=== PATIENT | female | born 1965 | race Caucasian/White ===

== ENCOUNTER 2016-08-05 20:02 | Observation (INO) | payer BC ==
[~2016-08-05] VITALS: Ht 154.9 cm; Wt 68.0 kg
[2016-08-05 20:55] VITALS: BP 127/62; PULSE 77; RESP 20; TEMP 97.9; O2SAT 98
[2016-08-05] MEDS ORDERED: oxyCODONE/ACETAMINOPHEN 10 MG/325 MG TAB PO ONE (21:45)
[2016-08-05] MEDS ORDERED: oxyCODONE/ACETAMINOPHEN 5 MG/325 MG TAB PO ONE (22:45)
--- NOTE | 2016-08-05 22:51 | RADRPT ---
EXAM DATE/TIME: 08/05/2016 22:22 [facility] COMPARISON: No previous studies available for comparison. INDICATIONS : Patient fell this morning and wasn't able to get up the stairs to her house. MEDICAL HISTORY : None. SURGICAL HISTORY : None. ENCOUNTER: Initial ACUITY: 1 day PAIN SCORE: 10/10 LOCATION: Right Knee FINDINGS: There is a comminuted and mildly depressed fracture of the lateral tibial plateau. A more focal fract ure is seen along the medial margin of the medial tibial plateau as well, appears minimally displaced /depressed. Moderate to large effusion. Distal femur intact. CONCLUSION: Medial and lateral tibial plateau fractures. The lateral tibial plateau fracture is mildly depressed and displaced but radiographically I don't see any abrupt step-offs. Humphrey Davidson MD on August 05, 2016 at 22:47 Board Certified Radiologist. This report was verified electronically.
--- NOTE | 2016-08-05 23:29 | PD ---
HPI Chief Complaint: Injury Time Seen by Provider: 20:52 Travel History International Travel<30 days: No Contact w/Intl Traveler<30days: No Traveled to known affect area: No History of Present Illness HPI Patient is a 51-year-old female presents emergency Department with right knee pain. Patient states she went to walk her dog earlier this morning and her dog caused her to trip and fall landing on a bent right knee. Patient states she was having pain since then. She presented to [facility] emergency department where she had x-rays which showed she had a knee fracture. She was placed in a knee immobilizer and told to follow-up with orthopedic surgery. Patient returned home where she lives on the third floor and stated that she could not find a way to get upstairs because she was in severe pain. She call 911 and was transported to [facility]. On arrival patient appears fairly comfortable but any manipulation of her knee causes significant pain. She denies any other injuries denies any head neck or back injuries. FORMERLY [facility] Social History Tobacco Use: No Allergies-Medications (Allergen,Severity, Reaction): Coded Allergies: No Known Allergies (Unverified , 08/05/16) Review of Systems Except as stated in HPI: all other systems reviewed are Neg Physical Exam Narrative GENERAL: Well-developed well-nourished in no apparent distress. SKIN: Warm and dry. HEAD: Atraumatic. Normocephalic. EYES: Pupils equal and round. No scleral icterus. No injection or drainage. ENT: No nasal bleeding or discharge. Mucous membranes pink and moist. NECK: Trachea midline. No JVD. CARDIOVASCULAR: Regular rate and rhythm. No murmur appreciated. RESPIRATORY: No accessory muscle use. Clear to auscultation. Breath sounds equal bilaterally. GASTROINTESTINAL: Abdomen soft, non-tender, nondistended. Hepatic and splenic margins not palpable. MUSCULOSKELETAL: RLE: Patient is significant swelling over the right knee and minimal joint effusion. She has exquisite tenderness on palpating the medial or lateral aspects of her knee. She does not allow for ligamentous testing. Her compartments are soft, pulses motor and sensory are intact distally. There is no tenderness at the medial lateral malleoli in the ankle nor tenderness in the right hip joint. Skin is intact over the knee joint. LLE: Left lower extremity is atraumatic. Axial skeleton is atraumatic, no midline step-off or tenderness. Pelvis is stable. NEUROLOGICAL: Awake and alert. No obvious cranial nerve deficits. Motor grossly within normal limits. Normal speech. PSYCHIATRIC: Appropriate mood and affect; insight and judgment normal. Data Data Last Documented VS Vital Signs Date Time Temp Pulse Resp B/P Pulse Ox O2 Delivery O2 Flow Rate FiO2 08/05/16 20:55 97.9 77 20 127/62 98 Orders Oxycodone-Acetamin 10-325 Mg (Percocet 1 (08/05/16 21:45) Knee, Complete (4vws) (08/05/16 ) Oxycodone-Acetamin 5-325 Mg (Percocet (08/05/16 22:45) Electrocardiogram (08/05/16 23:34) Complete Blood Count With Diff (08/05/16 23:34) Comprehensive Metabolic Panel (08/05/16 23:34) Magnesium (Mg) (08/05/16 23:34) Prothrombin Time / Inr (Pt) (08/05/16 23:34) Act Partial Throm Time (Ptt) (08/05/16 23:34) Chest, Single Ap (08/05/16 23:34) Ecg Monitoring (08/05/16 23:34) Bilateral Bp Monitoring (08/05/16 23:34) Iv Access Insert/Monitor (08/05/16 23:34) Oximetry (08/05/16 23:34) Oxygen Administration (08/05/16 23:34) Sodium Chloride 0.9% Flush (Ns Flush) (08/05/16 23:45) Admit To Inpatient (08/05/16 ) Vital Signs (Adult) Q4H (08/05/16 23:40) Activity Bed Rest (08/05/16 23:40) Diet Npo (08/06/16 Breakfast) Sodium Chlor 0.9% 1000 Ml Inj (Ns 1000 M (08/05/16 23:40) Sodium Chloride 0.9% Flush (Ns Flush) (08/05/16 23:45) Sodium Chloride 0.9% Flush (Ns Flush) (08/06/16 09:00) Ondansetron Inj (Zofran Inj) (08/05/16 23:45) Bisacodyl Supp (Dulcolax Supp) (08/05/16 23:45) Comprehensive Metabolic Panel (08/07/16 06:00) Complete Blood Count With Diff (08/07/16 06:00) Acetaminophen (Tylenol) (08/05/16 23:45) Acetamin-Hydrocod 325-5 Mg ([place] 5-325 (08/05/16 23:45) Morphine Inj (Morphine Inj) (08/05/16 23:45) Inpatient Certification (08/05/16 ) Admit Order (Ed Use Only) (08/05/16 ) Consult Orthopedic (08/05/16 ) [facility] Medical Decision Making Medical Screen Exam Complete: Yes Emergency Medical Condition: Yes Differential Diagnosis Knee fracture, knee contusion, knee sprain, knee strain. Narrative Course Patient was roomed in the emergency department, she appears fairly comfortable until any manipulation of her knee. X-rays obtained and show both the medial and lateral tibial plateau fracture on the right knee. Both are minimally displaced. Patient was placed in a knee immobilizer. Discussed with Dr. Bay Irby of the orthopedic service who agrees for consultation and inpatient admission. Dr. Robyn Amezquita's consult in for the episode is who will admit. Patient was instructed not to eat or drink anything after midnight for possible surgical intervention in the morning. Basic labs and EKG were ordered as part of preoperative clearance. Patient was given Percocet 5 mg by mouth 2 in the emergency department and on my reevaluation she is sleeping soundly in no apparent distress. Diagnosis Primary Impression: Tibial plateau fracture, right Qualified Code: S82.141A - Tibial plateau fracture, right, closed, initial encounter Admitting Information Admitting Physician Requests: Admit Condition: Stable Jamil Mcghee MD Aug 05, 2016 23:29
--- NOTE | 2016-08-05 23:41 | HHI.HP ---
[facility] Diagnosis Diagnoses: (1) Fall Diagnosis: Principal (2) Tibial plateau fracture, right Diagnosis: Principal (3) Hypokalemia Diagnosis: Principal Travel History International Travel<30 Days: No Contact w/Intl Traveler <30 Da: No Traveled to Known Affected Are: No History of Present Illness This a 51-year-old female with no significant PMH who was brought to the ER by EMS secondary to complaints of right knee pain. 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 Had presented to [facility] w/ complaints of right knee pain, had X-rays showing right knee fracture, was place in immobilizer and given instructions to follow up w/ Ortho as outpatient. When pt returned home she states she was unable to get up the stairs to her apartment due to the pain. On arrival, BP 127/62, HR 77, O2 sat 98% on RA, Afebrile. K+ 3.4. CXR w/ no acute findings. Knee X-ray w/ medial and lateral tibial plateau fractures. Dr. Irby consulted by ER physician, plan for surgical intervention. Review of Systems Other ROS: 14 point review of systems otherwise negative. Past Family Social History Past Medical History PMH: None Past Surgical History PAST SURGICAL HISTORY: None Allergies: Coded Allergies: No Known Allergies (Unverified , 08/05/16) Family History PAST FAMILY HISTORY: Reviewed. No h/o DM or CAD Social History PAST SOCIAL HISTORY: Negative for alcohol, tobacco or drugs. Physical Exam Vital Signs Vital Signs Date Time Temp Pulse Resp B/P Pulse Ox O2 Delivery O2 Flow Rate FiO2 08/05/16 20:55 97.9 77 20 127/62 98 Physical Exam PE: GENERAL: Middle-aged white female in no acute distress, however mildly anxious. HEENT: PERRLA, EOMI. No scleral icterus or conjunctival pallor. No lid lag or facial droop. CARDIOVASCULAR: Regular rate and rhythm. No obvious murmurs to auscultation. No chest tenderness to palpation. RESPIRATORY: No obvious rhonchi or wheezing. Clear to auscultation. Breath sounds equal bilaterally. GASTROINTESTINAL: Abdomen soft, non-tender, nondistended. BS normal. MUSCULOSKELETAL: Decreased ROM of RLE due to injury, significant tenderness to palpation. Pulses intact. NEUROLOGICAL: Awake, alert and oriented x4. No focal neurologic deficits. Moving both upper and lower extremities spontaneously. Assessment and Plan Problem List: (1) Fall ICD Code: W19.XXXA Status: Acute (2) Tibial plateau fracture, right ICD Code: S82.141A Status: Acute (3) Hypokalemia ICD Code: E87.6 Status: Acute Assessment and Plan A/P: 1. Fall: s/p mechanical fall down steps at home, no LOC or head trauma. 2. Right Knee Fx: Presented to [facility] after fall w/ complaints of right knee pain, found to have Right Knee Fx, s/p immobilizer and referred to Ortho as outpatient, however pt w/ persistent pain, unable to ambulate. X-ray w/ medial and lateral tibial plateau fx, images reviewed by me. Dr. Irby consulted by ER physician, plan for surgical intervention, NPO, IVF, analgesics/ antiemetics. 3. Hypokalemia: K+ 3.2, will replace, recheck labs in am, replace as needed. 4. DVT Prophylaxis: Anticoagulation post op per Ortho 5. Social work for d/c planning as needed. 6. Case discussed w/ ER physician at length. Physician Certification 2 Midnight Certification Type: Admission for Inpatient Services Order for Inpatient Services The services are ordered in accordance with Medicare regulations or non- Medicare payer requirements, as applicable. In the case of services not specified as inpatient-only, they are appropriately provided as inpatient services in accordance with the 2-midnight benchmark. Estimated LOS (days): 2 days is the estimated time the patient will need to remain in the hospital, assuming treatment plan goals are met and no additional complications. Post-Hospital Plan: Not yet determined Problem Qualifiers (1) Tibial plateau fracture, right: Qualified Code: S82.141A - Tibial plateau fracture, right, closed, initial encounter Robyn العراقي MD Aug 05, 2016 23:41
[2016-08-05] MEDS ORDERED: SODIUM CHLORIDE 0.9% FLUSH 5 ML FLUSH IVF PRN (23:45)
[2016-08-05] MEDS ORDERED: ACETAMINOPHEN 325 MG TAB PO PRN (23:45)
[2016-08-05] MEDS ORDERED: BISACODYL 10 MG SUPP PR PRN (23:45)
[2016-08-05] MEDS ORDERED: SODIUM CHLORIDE 0.9% FLUSH 5 ML FLUSH FLUSH PRN (23:45)
[2016-08-05] MEDS ORDERED: ACETAMINOPHEN/HYDROcodone 325 MG/5 MG TAB PO PRN (23:45)
[2016-08-06] VITALS (13 sets, daily range): BP systolic 97–137; BP diastolic 51–82; PULSE 53–84; RESP 16–22; TEMP 97.3–98.6; O2SAT 95–99
--- NOTE | 2016-08-06 00:09 | RADRPT ---
EXAM DATE/TIME: 08/05/2016 23:50 [facility] COMPARISON: No previous studies available for comparison. INDICATIONS : Evaluate for chest pain, pre op. Patient has right tibial plateau fx. MEDICAL HISTORY : None. SURGICAL HISTORY : None. ENCOUNTER: Initial ACUITY: 1 day PAIN SCORE: 7/10 LOCATION: Bilateral chest FINDINGS: Portable AP view of the chest demonstrates a normal-sized cardiac silhouette. No effusion, consolidat ion, or pneumothorax is visualized. The bones and soft tissues demonstrate no acute abnormality. CONCLUSION: No acute cardiopulmonary abnormality is identified. Humphrey Armendariz MD on August 06, 2016 at 0:06 Board Certified Radiologist. This report was verified electronically.
[2016-08-06 01:24] LABS: BASOPHIL % 0.6 % (0.0-2.0); EOSINOPHIL # 0.1 TH/MM3 (0-0.4); EOSINOPHIL % 2.7 % (0.0-4.0); HEMATOCRIT 35.4 % (35.0-46.0); HEMO FLAGS DIFF FINAL; LYMPH % 29.6 % (9.0-44.0); LYMPHOCYTE # 1.5 TH/MM3 (1.0-4.8); MEAN CELL VOLUME 87.9 FL (80.0-100.0); MEAN CORPUSCULAR HEMOGLOBIN 29.6 PG (27.0-34.0); MEAN CORPUSCULAR HGB CONC 33.7 % (32.0-36.0); MONO % 8.3 % (0.0-8.0); NEUT % 58.8 % (16.0-70.0); PLATELET COUNT 188 TH/MM3 (150-450); RED BLOOD COUNT 4.03 MIL/MM3 (4.00-5.30); WHITE BLOOD COUNT 5.2 TH/MM3 (4.0-11.0)
[2016-08-06 01:37] LABS: ALT (GPT) 29 U/L (10-53); ANION GAP 7 MEQ/L (5-15); AST (GOT) 11 U/L (15-37); BICARBONATE 26.5 MEQ/L (21.0-32.0); BLOOD UREA NITROGEN 16 MG/DL (7-18); CHLORIDE 108 MEQ/L (98-107); GLOMERULAR FILTRATION RATE 64 ML/MIN (>89); POTASSIUM 3.4 MEQ/L (3.5-5.1); SODIUM (NA) 141 MEQ/L (136-145)
[2016-08-06 01:39] LABS: ALKALINE PHOSPHATASE 70 U/L (45-117); TOTAL BILIRUBIN ADULT 0.4 MG/DL (0.2-1.0)
[2016-08-06] MEDS ORDERED: POTASSIUM CHLORIDE 20 MEQ CONTROLLED RELEASE TAB PO ONE (02:30)
[2016-08-06] MEDS: SODIUM CHLOR 0.9% 1000 ML INJ 1,000 ML IV SCH ×3 (03:01→19:40)
[2016-08-06] MEDS: MORPHINE SULFATE 4 MG/ML INJ IV PRN ×2 (04:25→07:24)
[2016-08-06] MEDS: SODIUM CHLORIDE 0.9% FLUSH 5 ML FLUSH FLUSH SCH ×2 (07:25→20:54)
--- NOTE | 2016-08-06 07:33 | HHI.PR ---
Subjective Remarks in no acute distress. complaining of pain to the right knee. otherwise no other complaints. d/w the RN. Objective Vitals Vital Signs Date Time Temp Pulse Resp B/P Pulse Ox O2 Delivery O2 Flow Rate FiO2 08/06/16 03:54 53 08/06/16 03:30 97.3 69 20 131/76 96 08/06/16 00:01 97.7 67 22 120/66 96 08/06/16 00:00 97.7 69 22 117/67 96 08/06/16 00:00 97.7 69 22 117/67 96 08/05/16 20:55 97.9 77 20 127/62 98 I/O 08/05/16 08/05/16 08/05/16 08/06/16 08/06/16 08/06/16 07:00 15:00 23:00 07:00 15:00 23:00 Intake Total 350 ml Balance 350 ml Intake IV Total 350 ml # Voids 2 Result Diagram: 08/06/16 0055 08/06/16 0055 Imaging Last Impressions Chest X-Ray 08/05/16 2334 Signed Impressions: Service Date/Time: August 23:50 - CONCLUSION: No acute cardiopulmonary abnormality is identified. Humphrey Armendariz MD Knee X-Ray 08/05/16 0000 Signed Impressions: Service Date/Time: August 22:22 - CONCLUSION: Medial and lateral tibial plateau fractures. The lateral tibial plateau fracture is mildly depressed and displaced but radiographically I don't see any abrupt step-offs. Humphrey Davidson MD Objective Remarks GENERAL: This is a well-nourished, well-developed patient, in no apparent distress. CARDIOVASCULAR: Regular rate and regular rhythm without murmurs, gallops, or rubs. RESPIRATORY: Clear to auscultation. Breath sounds equal bilaterally. No wheezes , rales, or rhonchi. GASTROINTESTINAL: Abdomen soft, non-tender, nondistended. Normal, active bowel sounds MUSCULOSKELETAL: right knee covered with clean dressing. NEURO: Alert & Oriented x4 to person, place, time, situation. Moves all ext x4 Procedures none Medications and IVs Current Medications Oxycodone/ Acetaminophen (Percocet 10-325 Mg) 1 tab ONCE ONCE PO ; Start at 21:45; Stop 08/05/16 at 22:36; Status DC Oxycodone/ Acetaminophen (Percocet 5-325 Mg) 2 tab ONCE ONCE PO Last administered on 08/05/16 23:10; Start 08/05/16 at 22:45; Stop 08/05/16 at 22:47; Status DC IV Flush 2 ml 2 ml UNSCH PRN IVF FLUSH AFTER USING IV ACCESS; Start 08/05/16 at 23:45; Stop 08/05/16 at 23:45; Status DC Sodium Chloride (NS 1000 ml Inj) 1,000 ml @ 100 mls/hr Q10H IV Last administered on 08/06/16 03:01; Start 08/05/16 at 23:40 IV Flush (NS Flush) 2 ml UNSCH PRN FLUSH FLUSH AFTER USING IV ACCESS; Start 08/05/16 at 23:45 IV Flush (NS Flush) 2 ml BID FLUSH Last administered on 08/06/16 07:25; Start 08/06/16 at 09:00 Ondansetron HCl (Zofran Inj) 4 mg Q6H PRN IVP NAUSEA OR VOMITING; Start at 23:45 Bisacodyl (Dulcolax Supp) 10 mg DAILY PRN [place] CONSTIPATION; Start 08/05/16 at 23: 45 Acetaminophen (Tylenol) 650 mg Q6H PRN PO FEVER/PAIN SCALE 1 TO 2; Start at 23:45 Acetaminophen/ Hydrocodone Bitart ([place] 5-325 Mg) 1 tab Q4H PRN PO PAIN SCALE 3 TO 5; Start 08/05/16 at 23:45 Morphine Sulfate (Morphine Inj) 2 mg Q3H PRN IV Pain 6-10 Last administered on 08/06/16 07:24; Start 08/05/16 at 23:45 Potassium Chloride (KCl) 40 meq ONCE ONCE PO Last administered on 08/06/16 03: 00; Start 08/06/16 at 02:30; Stop 08/06/16 at 02:37; Status DC A/P Assessment and Plan A/P 1. Fall: s/p mechanical fall down steps at home, no LOC or head trauma. 2. Right Knee Fx: Presented to [facility] after fall w/ complaints of right knee pain, found to have Right Knee Fx, s/p immobilizer and referred to Ortho as outpatient, however pt w/ persistent pain, unable to ambulate. X-ray w/ medial and lateral tibial plateau fx- ortho consulted- NPO, IVF, analgesics/ antiemetics. 3. Hypokalemia: K+ 3.2, replace, recheck labs in am, replace as needed. 4. DVT Prophylaxis: per ortho. Bethanie Bishop MD Aug 06, 2016 07:33
--- NOTE | 2016-08-06 07:33 | RADRPT ---
EXAM DATE/TIME: 08/06/2016 06:58 [facility] COMPARISON: No previous studies available for comparison. INDICATIONS : Trauma, fall. Evaluate fracture. RADIATION DOSE: 7.29 CTDIvol (mGy) MEDICAL HISTORY : None SURGICAL HISTORY : None. ENCOUNTER: Initial ACUITY: 1 day PAIN SCALE: 10/10 LOCATION: Right proximal tibia TECHNIQUE: Volumetric scanning of the knee was performed. Using automated exposure control and adjustment of th e mA and/or kV according to patient size, radiation dose was kept as low as reasonably achievable to obtain optimal diagnostic quality images. FINDINGS: There is plateau fracture involving medial and lateral plateau with significant deformity of the [place] cular cartilage over two thirds of the tibial plateau. Subarticular cyst is noted centrally. The distal femur and patella are intact. The fibular head is intact. CONCLUSION: Depressed punch type tibial plateau fracture involving the significant amount of the articular cartilage. Subarticular cyst is noted centrally. Jamel Jarrett MD FACR on August 06, 2016 at 7:30 Board Certified Radiologist. This report was verified electronically.
[2016-08-06] MEDS ORDERED: TOPI1TAB36 PO (07:35)
[2016-08-06] MEDS ORDERED: VENL50TA PO (07:35)
[2016-08-06] MEDS ORDERED: OXYC1TAB63 PO (07:35)
[2016-08-06] MEDS ORDERED: CART240C PO (07:35)
[2016-08-06] MEDS ORDERED: LOSA100T PO (07:35)
[2016-08-06] MEDS ORDERED: CITA20TA4 PO (07:35)
[2016-08-06] MEDS ORDERED: PHEN1TAB84 PO (07:35)
--- NOTE | 2016-08-06 13:37 | EKG ---
Date Performed: 08/06/2016 Time Performed: 07:48:33 PTAGE: 51 years EKG: SINUS BRADYCARDIA BORDERLINE ECG PREVIOUS TRACING : 08/06/2016 07.47 DOCTOR: Monica De Leon Interpretating Date/Time 08/06/2016 13:33:48
--- NOTE | 2016-08-06 13:42 | PD.ORT.PN ---
Subjective Subjective Remarks s/p fall at home. right knee paint. no other complaints Objective Vitals Vital Signs Date Time Temp Pulse Resp B/P Pulse Ox O2 Delivery O2 Flow Rate FiO2 08/06/16 10:00 68 20 114/58 98 Room Air 08/06/16 09:00 63 20 126/82 98 Room Air 08/06/16 08:01 18 08/06/16 07:36 113/75 97/53 08/06/16 07:28 63 17 110/51 97 Room Air 08/06/16 03:54 53 08/06/16 03:30 97.3 69 20 131/76 96 08/06/16 00:01 97.7 67 22 120/66 96 08/06/16 00:00 97.7 69 22 117/67 96 08/06/16 00:00 97.7 69 22 117/67 96 08/05/16 20:55 97.9 77 20 127/62 98 I/O 08/05/16 08/05/16 08/05/16 08/06/16 08/06/16 08/06/16 07:00 15:00 23:00 07:00 15:00 23:00 Intake Total 350 ml Balance 350 ml Intake IV Total 350 ml # Voids 2 Result Diagram: 08/06/16 0055 08/06/16 0055 Other Results Laboratory Tests Test 08/06/16 00:55 Prothrombin Time 11.0 SEC (9.8-11.6) Prothromb Time International 1.0 RATIO Ratio Imaging Last 24 hours Impressions Lower Extremity CT 08/06/16 0000 Signed Impressions: Service Date/Time: Saturday, August 06, 2016 06:58 - CONCLUSION: Depressed punch type tibial plateau fracture involving the significant amount of the articular cartilage. Subarticular cyst is noted centrally. Jamel Jarrett MD FACR Chest X-Ray 08/05/16 9256 Signed Impressions: Service Date/Time: August 23:50 - CONCLUSION: No acute cardiopulmonary abnormality is identified. Humphrey Armendariz MD Objective Remarks RLE: + knee brace. + ice cuff. NVI distally. compartments sfot. Assessment & Plan Assessment and Plan 1) Right Tibial Plateau Fx -nonop -NWB -maintain brace -recmomend Dc to rehab -f/u with [facility] or [facility] in 2 weeks -ortho cleared for DC to rehab Luis Kelley Aug 06, 2016 13:42
[2016-08-06] MEDS: MORPHINE SULFATE 4 MG/ML INJ IV PUSH PRN ×3 (14:18→21:39)
[2016-08-06] MEDS: ENOXAPARIN SODIUM 30 MG/0.3 ML SYRINGE SQ SCH (14:18)
[2016-08-06] MEDS: ONDANSETRON HCL 4 MG/2 ML VIAL IVP PRN (14:19)
[2016-08-06] MEDS: ACETAMINOPHEN/HYDROcodone 325 MG/7.5 MG TAB PO PRN (18:13)
[2016-08-07] MEDS: MORPHINE SULFATE 4 MG/ML INJ IV PUSH PRN ×6 (00:41→21:13)
[2016-08-07] MEDS: ACETAMINOPHEN/HYDROcodone 325 MG/7.5 MG TAB PO PRN ×2 (01:07→04:51)
[2016-08-07 03:51] VITALS: BP 168/87; PULSE 80; RESP 16; TEMP 98.1; O2SAT 93
[2016-08-07] MEDS: ONDANSETRON HCL 4 MG/2 ML VIAL IVP PRN (04:06)
[2016-08-07 04:52] LABS: AUTOMATED NEUTROPHIL # 2.4 TH/MM3 (1.8-7.7); BASOPHIL # 0.1 TH/MM3 (0-0.2); BASOPHIL % 2.3 % (0.0-2.0); EOSINOPHIL # 0.1 TH/MM3 (0-0.4); EOSINOPHIL % 3.6 % (0.0-4.0); HEMATOCRIT 36.4 % (35.0-46.0); LYMPH % 21.1 % (9.0-44.0); LYMPHOCYTE # 0.8 TH/MM3 (1.0-4.8); MEAN CELL VOLUME 90.5 FL (80.0-100.0); MEAN CORPUSCULAR HEMOGLOBIN 29.4 PG (27.0-34.0); MEAN CORPUSCULAR HGB CONC 32.5 % (32.0-36.0); MONO % 9.1 % (0.0-8.0); NEUT % 63.9 % (16.0-70.0); PLATELET COUNT 176 TH/MM3 (150-450); RED BLOOD COUNT 4.02 MIL/MM3 (4.00-5.30); RED CELL DISTRIBUTION WIDTH 17.7 % (11.6-17.2); WHITE BLOOD COUNT 3.8 TH/MM3 (4.0-11.0)
[2016-08-07 04:58] LABS: HEMO FLAGS AUTO DIFF
[2016-08-07 05:16] LABS: ALKALINE PHOSPHATASE 62 U/L (45-117); ALT (GPT) 24 U/L (10-53); ANION GAP 6 MEQ/L (5-15); AST (GOT) 11 U/L (15-37); BICARBONATE 24.4 MEQ/L (21.0-32.0); BLOOD UREA NITROGEN 13 MG/DL (7-18); CHLORIDE 112 MEQ/L (98-107); GLOMERULAR FILTRATION RATE 86 ML/MIN (>89); POTASSIUM 4.6 MEQ/L (3.5-5.1); SODIUM (NA) 142 MEQ/L (136-145); TOTAL BILIRUBIN ADULT 0.3 MG/DL (0.2-1.0)
[2016-08-07] MEDS: SODIUM CHLOR 0.9% 1000 ML INJ 1,000 ML IV SCH ×2 (05:40→14:22)
--- NOTE | 2016-08-07 07:39 | HHI.PR ---
Subjective Remarks in no acute distress. has some pain to the right leg. otherwise no other complaints. d/w the RN and no acute issues over night. Objective Vitals Vital Signs Date Time Temp Pulse Resp B/P Pulse Ox O2 Delivery O2 Flow Rate FiO2 08/07/16 03:51 98.1 80 16 168/87 93 08/07/16 00:46 20 08/06/16 23:58 97.5 71 20 137/79 95 08/06/16 19:59 98.6 71 20 136/57 95 08/06/16 18:15 97.8 84 18 114/72 99 Room Air 08/06/16 14:00 70 18 114/57 99 Room Air 08/06/16 12:00 70 16 110/58 98 Room Air 08/06/16 10:00 68 20 114/58 98 Room Air 08/06/16 09:00 63 20 126/82 98 Room Air 08/06/16 08:01 18 Result Diagram: 08/07/16 0433 08/07/16 0433 Imaging Last Impressions Lower Extremity CT 08/06/16 0000 Signed Impressions: Service Date/Time: Saturday, August 06, 2016 06:58 - CONCLUSION: Depressed punch type tibial plateau fracture involving the significant amount of the articular cartilage. Subarticular cyst is noted centrally. Jamel Jarrett MD FACR Chest X-Ray 08/05/16 2334 Signed Impressions: Service Date/Time: August 23:50 - CONCLUSION: No acute cardiopulmonary abnormality is identified. Humphrey Armendariz MD Knee X-Ray 08/05/16 0000 Signed Impressions: Service Date/Time: August 22:22 - CONCLUSION: Medial and lateral tibial plateau fractures. The lateral tibial plateau fracture is mildly depressed and displaced but radiographically I don't see any abrupt step-offs. Humphrey Davidson MD Objective Remarks GENERAL: This is a well-nourished, well-developed patient, in no apparent distress. CARDIOVASCULAR: Regular rate and regular rhythm without murmurs, gallops, or rubs. RESPIRATORY: Clear to auscultation. Breath sounds equal bilaterally. No wheezes , rales, or rhonchi. GASTROINTESTINAL: Abdomen soft, non-tender, nondistended. Normal, active bowel sounds MUSCULOSKELETAL: right knee covered with clean dressing. NEURO: Alert & Oriented x4 to person, place, time, situation. Moves all ext x4 Procedures none Medications and IVs Current Medications Oxycodone/ Acetaminophen (Percocet 10-325 Mg) 1 tab ONCE ONCE PO ; Start at 21:45; Stop 08/05/16 at 22:36; Status DC Oxycodone/ Acetaminophen (Percocet 5-325 Mg) 2 tab ONCE ONCE PO Last administered on 08/05/16 23:10; Start 08/05/16 at 22:45; Stop 08/06/16 at 13:47; Status DC IV Flush 2 ml 2 ml UNSCH PRN IVF FLUSH AFTER USING IV ACCESS; Start 08/05/16 at 23:45; Stop 08/05/16 at 23:45; Status DC Sodium Chloride (NS 1000 ml Inj) 1,000 ml @ 100 mls/hr Q10H IV Last administered on 08/07/16 05:40; Start 08/05/16 at 23:40 IV Flush (NS Flush) 2 ml UNSCH PRN FLUSH FLUSH AFTER USING IV ACCESS; Start 08/05/16 at 23:45 IV Flush (NS Flush) 2 ml BID FLUSH Last administered on 08/06/16 07:25; Start 08/06/16 at 09:00 Ondansetron HCl (Zofran Inj) 4 mg Q6H PRN IVP NAUSEA OR VOMITING Last administered on 08/07/16 04:06; Start 08/05/16 at 23:45 Bisacodyl (Dulcolax Supp) 10 mg DAILY PRN [place] CONSTIPATION; Start 08/05/16 at 23: 45 Acetaminophen (Tylenol) 650 mg Q6H PRN PO FEVER; Start 08/05/16 at 23:45 Acetaminophen/ Hydrocodone Bitart ([place] 5-325 Mg) 1 tab Q4H PRN PO PAIN SCALE 3 TO 5 Last administered on 08/06/16 10:51; Start 08/05/16 at 23:45; Stop 08/06/16 at 13:47; Status DC Morphine Sulfate (Morphine Inj) 2 mg Q3H PRN IV Pain 6-10 Last administered on 08/06/16 07:24; Start 08/05/16 at 23:45; Stop 08/06/16 at 13:47; Status DC Potassium Chloride (KCl) 40 meq ONCE ONCE PO Last administered on 08/06/16 03: 00; Start 08/06/16 at 02:30; Stop 08/06/16 at 02:37; Status DC Enoxaparin Sodium (Lovenox Inj) 30 mg Q24H SQ Last administered on 08/06/16 14: 18; Start 08/06/16 at 15:00 Acetaminophen/ Hydrocodone Bitart ([place] 7.5-325 Mg) 1 tab Q4H PRN PO pain 1- 5 Last administered on 08/07/16 04:51; Start 08/06/16 at 13:45 Acetaminophen/ Hydrocodone Bitart ([place] 10-325 Mg) 1 tab Q4H PRN PO pain 6-10 ; Start 08/06/16 at 13:45 Morphine Sulfate (Morphine Inj) 4 mg Q3H PRN IV PUSH breakthrough pain Last administered on 08/07/16 06:49; Start 08/06/16 at 13:45 A/P Assessment and Plan A/P 1. Fall: s/p mechanical fall down steps at home, no LOC or head trauma. 2. Right Knee Fx: ortho consult appreciated and recommended; non-op treatment / NWB and dc planning to rehab- continue pain control- f/u with ortho as outpatient. 3. Hypokalemia: replaced. 4. DVT Prophylaxis:on lovenox. Discharge Planning dc to rehab when arrangements made. see med list. f/u; pcp and ortho. d/w the patient and RN. Bethanie Bishop MD Aug 07, 2016 07:39
[2016-08-07] MEDS ORDERED: HYDR-3580 PO (07:41)
--- NOTE | 2016-08-07 07:42 | HHI.DCPOC ---
Discharge Care Plan Diagnosis: (1) Tibial plateau fracture, right Your Health Problems Are: Difficulty with ADL Chronic Pain Goals to Promote Your Health * To prevent worsening of your condition and complications * To maintain your health at the optimal level Directions to Meet Your Goals Take your medications as prescribed Follow your dietary instruction Follow activity as directed Keep your appointments as scheduled Take your immunizations and boosters as scheduled If your symptoms worsen call your PCP, if no PCP go to Urgent Care Center or Emergency Room Smoking is Dangerous to Your Health. Avoid second hand smoke Call the 24-hour hour crisis hotline for domestic abuse at Bethanie Bishop MD Aug 07, 2016 07:42
--- NOTE | 2016-08-07 07:43 | HHI.DS ---
Discharge Summary Admission Date Aug 05, 2016 at 23:43 Discharge Date: Aug 07, 2016 Admitting Diagnosis (1) Fall ICD Code: W19.XXXA Diagnosis: Principal (2) Tibial plateau fracture, right ICD Code: S82.141A Diagnosis: Principal (3) Hypokalemia ICD Code: E87.6 Diagnosis: Secondary Procedures none Brief History - From Admission This a 51-year-old female with no significant PMH who was brought to the ER by EMS secondary to complaints of right knee pain. Per patient, she had walked her dog earlier this morning and had fall while walking down her steps to go tack picker her dog. Had presented to [facility] w/ complaints of right knee pain, had X-rays showing right knee fracture, was place in immobilizer and given instructions to follow up w/ Ortho as outpatient. When pt returned home she states she was unable to get up the stairs to her apartment due to the pain. On arrival, BP 127/62, HR 77, O2 sat 98% on RA, Afebrile. K+ 3.4. CXR w/ no acute findings. Knee X-ray w/ medial and lateral tibial plateau fractures. Dr. Irby consulted by ER physician, plan for surgical intervention. CBC/BMP: 08/07/16 0433 08/07/16 0433 Significant Findings Laboratory Tests Test 08/06/16 08/07/16 00:55 04:33 Red Cell Distribution Width 18.0 % 17.7 % (11.6-17.2) (11.6-17.2) Monocytes (%) (Auto) 8.3 % (0.0-8.0) 9.1 % (0.0-8.0) Potassium Level 3.4 MEQ/L (3.5-5.1) Chloride Level 108 MEQ/L 112 MEQ/L (98-107) (98-107) Estimat Glomerular Filtration 64 ML/MIN (>89) 86 ML/MIN (>89) Rate Aspartate Amino Transf 11 U/L (15-37) 11 U/L (15-37) (AST/SGOT) Total Protein 6.2 GM/DL 6.2 GM/DL (6.4-8.2) (6.4-8.2) Albumin 3.3 GM/DL 3.0 GM/DL (3.4-5.0) (3.4-5.0) White Blood Count 3.8 TH/MM3 (4.0-11.0) Basophils (%) (Auto) 2.3 % (0.0-2.0) Lymphocytes # (Auto) 0.8 TH/MM3 (1.0-4.8) Imaging Last Impressions Lower Extremity CT 08/06/16 0000 Signed Impressions: Service Date/Time: Saturday, August 06, 2016 06:58 - CONCLUSION: Depressed punch type tibial plateau fracture involving the significant amount of the articular cartilage. Subarticular cyst is noted centrally. Jamel Jarrett MD FACR Chest X-Ray 08/05/16 2334 Signed Impressions: Service Date/Time: August 23:50 - CONCLUSION: No acute cardiopulmonary abnormality is identified. Humphrey Armendariz MD Knee X-Ray 08/05/16 0000 Signed Impressions: Service Date/Time: August 22:22 - CONCLUSION: Medial and lateral tibial plateau fractures. The lateral tibial plateau fracture is mildly depressed and displaced but radiographically I don't see any abrupt step-offs. Humphrey Davidson MD PE at Discharge GENERAL: This is a well-nourished, well-developed patient, in no apparent distress. CARDIOVASCULAR: Regular rate and regular rhythm without murmurs, gallops, or rubs. RESPIRATORY: Clear to auscultation. Breath sounds equal bilaterally. No wheezes , rales, or rhonchi. GASTROINTESTINAL: Abdomen soft, non-tender, nondistended. Normal, active bowel sounds MUSCULOSKELETAL: right knee covered with clean dressing. NEURO: Alert & Oriented x4 to person, place, time, situation. Moves all ext x4 Hospital Course 1. Fall: s/p mechanical fall down steps at home, no LOC or head trauma. 2. Right Knee Fx: ortho consult appreciated and recommended; non-op treatment / NWB and dc planning to rehab- continue pain control- f/u with ortho as outpatient. 3. Hypokalemia: replaced. 4. DVT Prophylaxis:on lovenox. Pt Condition on Discharge: Fair Discharge Disposition: Discharge to SNF Discharge Time: <= 30 minutes Discharge Instructions DIET: Follow Instructions for: Heart Healthy Diet Activities you can perform: Regular-No Restrictions, Non Weight Bearing Follow up Referrals: Orthopedics PCP Follow-up New Medications: Hydrocodone-Acetaminophen (Hydrocodone-Acetaminophen) 7.5-325 mg Tab 1 TAB PO Q6HR PRN pain #20 Ref 0 TAB Continued Medications: Citalopram (Citalopram) 20 Mg Tab 20 MG PO DAILY Control Depression #0 Ref 0 TAB Losartan (Losartan) 100 Mg Tab 100 MG PO DAILY Blood Pressure Management #0 Ref 0 TAB Phentermine (Adipex-P) 37.5 Mg Tab 37.5 MG PO DAILY Weight Management #9 Ref 0 TAB Topiramate (Topiramate) 50 Mg Tab 50 MG PO BID Control Seizures #0 Ref 0 TAB Venlafaxine (Effexor) 50 Mg Tab 50 MG PO Q12H #0 Ref 0 TAB Discontinued Medications: Diltiazem ER 24 HR (Cartia Xt) 240 Mg Caper 240 MG PO DAILY #0 Ref 0 CAP Oxycodone-Acetaminophen (Oxycodone-Acetaminophen) 5-325 mg Tab 1-2 TAB PO Q6H PRN PAIN Ref 0 TAB Bethanie Bishop MD Aug 07, 2016 07:43
[2016-08-07 08:00] VITALS: BP 139/81; PULSE 81; RESP 18; TEMP 97.4; O2SAT 94
--- NOTE | 2016-08-07 09:18 | PD.ORT.PN ---
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, recently she is an RN Objective Vitals Vital Signs Date Time Temp Pulse Resp B/P Pulse Ox O2 Delivery O2 Flow Rate FiO2 08/07/16 03:51 98.1 80 16 168/87 93 08/07/16 00:46 20 08/06/16 23:58 97.5 71 20 137/79 95 08/06/16 19:59 98.6 71 20 136/57 95 08/06/16 18:15 97.8 84 18 114/72 99 Room Air 08/06/16 14:00 70 18 114/57 99 Room Air 08/06/16 12:00 70 16 110/58 98 Room Air 08/06/16 10:00 68 20 114/58 98 Room Air Result Diagram: 08/07/16 0433 08/07/16 0433 Imaging Last 24 hours Impressions Lower Extremity CT 08/06/16 0000 Signed Impressions: Service Date/Time: Saturday, August 06, 2016 06:58 - CONCLUSION: Depressed punch type tibial plateau fracture involving the significant amount of the articular cartilage. Subarticular cyst is noted centrally. Jamel Jarrett MD FACR Chest X-Ray 08/05/16 2334 Signed Impressions: Service Date/Time: August 23:50 - CONCLUSION: No acute cardiopulmonary abnormality is identified. Humphrey Armendariz MD Objective Remarks seen by Dr. Ruben Ayala RLE: + knee brace. + ice cuff. NVI distally. compartments soft Assessment & Plan Assessment and Plan 1) Right Tibial Plateau Fx -nonop -NWB -maintain brace -recmomend DC to rehab -f/u with [facility] or [facility] in 2 weeks -ortho cleared for DC to rehab Erika Solo Aug 07, 2016 09:18
[2016-08-07 09:46] LABS: BANDS 5 % (0-6); BASOPHILS 2 % (0-2); EOSINOPHILS 2 % (0-4); NEUTROPHIL # MANUAL DIFF 2.3 TH/MM3 (1.8-7.7); POLYS (SEG NEUTROPHILS) 56 % (16-70); WBC DIFF SAMPLE 100
[2016-08-07 09:47] LABS: PLATELET ESTIMATE SMEAR NORMAL (NORMAL); PLATELET MORPHOLOGY NORMAL (NORMAL); SCAN/DIFF FINAL DIFF MANUAL
[2016-08-07] MEDS: VENLAFAXINE HCL 25 MG TAB PO SCH ×2 (09:47→21:14)
[2016-08-07] MEDS: CITALOPRAM HYDROBROMIDE 20 MG TAB PO SCH (09:47)
[2016-08-07] MEDS: ACETAMINOPHEN/HYDROcodone 325 MG/10 MG TAB PO PRN ×4 (09:47→23:31)
[2016-08-07] MEDS: LOSARTAN 50 MG TAB PO SCH (09:47)
[2016-08-07] MEDS: TOPIRAMATE 25 MG TAB PO SCH ×2 (09:47→21:13)
[2016-08-07] MEDS: SODIUM CHLORIDE 0.9% FLUSH 5 ML FLUSH FLUSH SCH ×2 (09:48→21:13)
[2016-08-07 12:34] VITALS: BP 129/69; PULSE 66; RESP 18; TEMP 97; O2SAT 93
[2016-08-07] MEDS: ENOXAPARIN SODIUM 30 MG/0.3 ML SYRINGE SQ SCH (14:21)
[2016-08-07 15:58] VITALS: BP 128/73; PULSE 62; RESP 18; TEMP 97.5; O2SAT 97
[2016-08-07 20:00] VITALS: BP 129/65; PULSE 80; RESP 20; TEMP 97.1; O2SAT 95
[2016-08-08] VITALS: BP 134/70; PULSE 80; RESP 20; TEMP 97.1; O2SAT 96
[2016-08-08] MEDS: SODIUM CHLOR 0.9% 1000 ML INJ 1,000 ML IV SCH ×3 (01:40→20:54)
[2016-08-08 04:00] VITALS: BP 125/75; PULSE 81; RESP 20; TEMP 98; O2SAT 97
[2016-08-08] MEDS: MORPHINE SULFATE 4 MG/ML INJ IV PUSH PRN ×4 (04:29→23:58)
[2016-08-08 07:51] VITALS: BP 162/74; PULSE 66; RESP 18; TEMP 97; O2SAT 97
--- NOTE | 2016-08-08 07:52 | HHI.PR ---
Subjective Remarks resting comfortably with no distress. pain to the right leg is fairly controlled. Objective Vitals Vital Signs Date Time Temp Pulse Resp B/P Pulse Ox O2 Delivery O2 Flow Rate FiO2 08/08/16 04:00 98.0 81 20 125/75 97 08/08/16 00:00 97.1 80 20 134/70 96 08/07/16 20:00 97.1 80 20 129/65 95 08/07/16 15:58 97.5 62 18 128/73 97 08/07/16 12:34 97.0 66 18 129/69 93 08/07/16 08:00 97.4 81 18 139/81 94 I/O 08/07/16 08/07/16 08/07/16 08/08/16 08/08/16 08/08/16 07:00 15:00 23:00 07:00 15:00 23:00 Intake Total 1200 ml 240 ml 393 ml Output Total 400 ml Balance 800 ml 240 ml 393 ml Intake Oral 1200 ml 240 ml 120 ml IV Total 273 ml Output Urine Total 400 ml # Voids 1 1 1 # Bowel Movements 0 Result Diagram: 08/07/16 0433 08/07/16 0433 Imaging Last Impressions Lower Extremity CT 08/06/16 0000 Signed Impressions: Service Date/Time: Saturday, August 06, 2016 06:58 - CONCLUSION: Depressed punch type tibial plateau fracture involving the significant amount of the articular cartilage. Subarticular cyst is noted centrally. Jamel Jarrett MD FACR Chest X-Ray 08/05/16 2334 Signed Impressions: Service Date/Time: August 23:50 - CONCLUSION: No acute cardiopulmonary abnormality is identified. Humphrey Armendariz MD Knee X-Ray 08/05/16 0000 Signed Impressions: Service Date/Time: August 22:22 - CONCLUSION: Medial and lateral tibial plateau fractures. The lateral tibial plateau fracture is mildly depressed and displaced but radiographically I don't see any abrupt step-offs. Humphrey Davidson MD Objective Remarks GENERAL: This is a well-nourished, well-developed patient, in no apparent distress. CARDIOVASCULAR: Regular rate and regular rhythm without murmurs, gallops, or rubs. RESPIRATORY: Clear to auscultation. Breath sounds equal bilaterally. No wheezes , rales, or rhonchi. GASTROINTESTINAL: Abdomen soft, non-tender, nondistended. Normal, active bowel sounds MUSCULOSKELETAL: right knee covered with clean dressing. NEURO: Alert & Oriented x4 to person, place, time, situation. Moves all ext x4 Procedures none Medications and IVs Current Medications Oxycodone/ Acetaminophen (Percocet 10-325 Mg) 1 tab ONCE ONCE PO ; Start at 21:45; Stop 08/05/16 at 22:36; Status DC Oxycodone/ Acetaminophen (Percocet 5-325 Mg) 2 tab ONCE ONCE PO Last administered on 08/05/16 23:10; Start 08/05/16 at 22:45; Stop 08/06/16 at 13:47; Status DC IV Flush 2 ml 2 ml UNSCH PRN IVF FLUSH AFTER USING IV ACCESS; Start 08/05/16 at 23:45; Stop 08/05/16 at 23:45; Status DC Sodium Chloride (NS 1000 ml Inj) 1,000 ml @ 100 mls/hr Q10H IV Last administered on 08/08/16 01:40; Start 08/05/16 at 23:40 IV Flush (NS Flush) 2 ml UNSCH PRN FLUSH FLUSH AFTER USING IV ACCESS; Start 08/05/16 at 23:45 IV Flush (NS Flush) 2 ml BID FLUSH Last administered on 08/07/16 21:13; Start 08/06/16 at 09:00 Ondansetron HCl (Zofran Inj) 4 mg Q6H PRN IVP NAUSEA OR VOMITING Last administered on 08/07/16 04:06; Start 08/05/16 at 23:45 Bisacodyl (Dulcolax Supp) 10 mg DAILY PRN MD CONSTIPATION; Start 08/05/16 at 23: 45 Acetaminophen (Tylenol) 650 mg Q6H PRN PO FEVER; Start 08/05/16 at 23:45 Acetaminophen/ Hydrocodone Bitart ([place] 5-325 Mg) 1 tab Q4H PRN PO PAIN SCALE 3 TO 5 Last administered on 08/06/16 10:51; Start 08/05/16 at 23:45; Stop 08/06/16 at 13:47; Status DC Morphine Sulfate (Morphine Inj) 2 mg Q3H PRN IV Pain 6-10 Last administered on 08/06/16 07:24; Start 08/05/16 at 23:45; Stop 08/06/16 at 13:47; Status DC Potassium Chloride (KCl) 40 meq ONCE ONCE PO Last administered on 08/06/16 03: 00; Start 08/06/16 at 02:30; Stop 08/06/16 at 02:37; Status DC Enoxaparin Sodium (Lovenox Inj) 30 mg Q24H SQ Last administered on 08/07/16 14: 21; Start 08/06/16 at 15:00 Acetaminophen/ Hydrocodone Bitart ([place] 7.5-325 Mg) 1 tab Q4H PRN PO pain 1- 5 Last administered on 08/07/16 04:51; Start 08/06/16 at 13:45 Acetaminophen/ Hydrocodone Bitart ([place] 10-325 Mg) 1 tab Q4H PRN PO pain 6-10 Last administered on 08/07/16 23:31; Start 08/06/16 at 13:45 Morphine Sulfate (Morphine Inj) 4 mg Q3H PRN IV PUSH breakthrough pain Last administered on 08/08/16 04:29; Start 08/06/16 at 13:45 Citalopram Hydrobromide (CeleXA) 20 mg DAILY PO Last administered on 08/07/16 09:47; Start 08/07/16 at 09:00 Losartan Potassium (Cozaar) 100 mg DAILY PO Last administered on 08/07/16 09:47 ; Start 08/07/16 at 09:00 Topiramate (Topamax) 50 mg BID PO Last administered on 08/07/16 21:13; Start at 09:00 Venlafaxine HCl (Effexor) 50 mg Q12HR PO Last administered on 08/07/16 21:14; Start 08/07/16 at 09:00 A/P Assessment and Plan A/P 1. Fall: s/p mechanical fall down steps at home, no LOC or head trauma. 2. Right Knee Fx: ortho consult appreciated and recommended; non-op treatment / NWB and dc planning to rehab- continue pain control- f/u with ortho as outpatient. 3. Hypokalemia: replaced. 4. DVT Prophylaxis:on lovenox. Discharge Planning dc to rehab when arrangements made. see med list. f/u; pcp and ortho. d/w the patient and RN. Bethanie Bishop MD Aug 08, 2016 07:52
[2016-08-08] MEDS: LOSARTAN 50 MG TAB PO SCH (08:48)
[2016-08-08] MEDS: TOPIRAMATE 25 MG TAB PO SCH ×2 (08:48→20:54)
[2016-08-08] MEDS: CITALOPRAM HYDROBROMIDE 20 MG TAB PO SCH (08:48)
[2016-08-08] MEDS: VENLAFAXINE HCL 25 MG TAB PO SCH ×2 (08:49→20:53)
[2016-08-08] MEDS: SODIUM CHLORIDE 0.9% FLUSH 5 ML FLUSH FLUSH SCH ×2 (08:49→20:53)
[2016-08-08] MEDS: ACETAMINOPHEN/HYDROcodone 325 MG/10 MG TAB PO PRN ×3 (09:29→20:54)
[2016-08-08 11:34] VITALS: BP 138/67; PULSE 84; RESP 22; TEMP 98.4; O2SAT 96
[2016-08-08] MEDS: ENOXAPARIN SODIUM 30 MG/0.3 ML SYRINGE SQ SCH (14:32)
[2016-08-08 20:00] VITALS: BP 134/74; PULSE 68; RESP 18; TEMP 97.7; O2SAT 97
[2016-08-09 00:15] VITALS: BP 160/78; PULSE 78; RESP 21; TEMP 98.3; O2SAT 99
[2016-08-09 04:51] VITALS: BP 166/79; PULSE 62; RESP 18; TEMP 98.3; O2SAT 98
--- NOTE | 2016-08-09 07:07 | PD.ORT.PN ---
Subjective Subjective Remarks s/p right tibial plateau fracture doing better. still pain in knee. Objective Vitals Vital Signs Date Time Temp Pulse Resp B/P Pulse Ox O2 Delivery O2 Flow Rate FiO2 08/09/16 04:51 98.3 62 18 166/79 98 08/09/16 00:15 98.3 78 21 160/78 99 08/08/16 20:00 97.7 68 18 134/74 97 08/08/16 11:34 98.4 84 22 138/67 96 08/08/16 07:51 97.0 66 18 162/74 97 I/O 08/08/16 08/08/16 08/08/16 08/09/16 08/09/16 08/09/16 07:00 15:00 23:00 07:00 15:00 23:00 Intake Total 393 ml 2265 ml 847 ml Output Total 975 ml Balance 393 ml 1290 ml 847 ml Intake Oral 120 ml 1165 ml 240 ml IV Total 273 ml 1100 ml 607 ml Output Urine Total 975 ml # Voids 1 1 2 Result Diagram: 08/07/16 0433 08/07/16 0433 Imaging Last 24 hours Impressions Lower Extremity CT 08/06/16 0000 Signed Impressions: Service Date/Time: Saturday, August 06, 2016 06:58 - CONCLUSION: Depressed punch type tibial plateau fracture involving the significant amount of the articular cartilage. Subarticular cyst is noted centrally. Jamel Jarrett MD FACR Chest X-Ray 08/05/16 2334 Signed Impressions: Service Date/Time: August 23:50 - CONCLUSION: No acute cardiopulmonary abnormality is identified. Humphrey Armendariz MD Objective Remarks RLE: + knee brace. + ice cuff. NVI distally. compartments soft Assessment & Plan Assessment and Plan 1) Right Tibial Plateau Fx -nonop -NWB -maintain brace -recmomend DC to rehab -f/u with [facility] or [facility] in 2 weeks -ortho cleared for DC to rehab Luis Kelley Aug 09, 2016 07:07
[2016-08-09] MEDS ORDERED: WHEEMIS3 (07:08)
[2016-08-09] MEDS ORDERED: WALKER/ADULT/FO1 MIS (07:08)
[2016-08-09 08:15] VITALS: BP 141/81; PULSE 63; RESP 17; TEMP 97.5; O2SAT 97
[2016-08-09] MEDS: SODIUM CHLOR 0.9% 1000 ML INJ 1,000 ML IV SCH ×2 (08:17→17:35)
[2016-08-09] MEDS: TOPIRAMATE 25 MG TAB PO SCH ×2 (08:17→19:30)
[2016-08-09] MEDS: MORPHINE SULFATE 4 MG/ML INJ IV PUSH PRN ×3 (08:18→19:31)
[2016-08-09] MEDS: LOSARTAN 50 MG TAB PO SCH (08:18)
[2016-08-09] MEDS: CITALOPRAM HYDROBROMIDE 20 MG TAB PO SCH (08:18)
[2016-08-09] MEDS: VENLAFAXINE HCL 25 MG TAB PO SCH ×2 (08:18→19:31)
[2016-08-09] MEDS: SODIUM CHLORIDE 0.9% FLUSH 5 ML FLUSH FLUSH SCH ×2 (09:00→19:30)
[2016-08-09] MEDS: ACETAMINOPHEN/HYDROcodone 325 MG/10 MG TAB PO PRN ×3 (10:52→21:47)
[2016-08-09 12:00] VITALS: BP 155/79; PULSE 56; RESP 20; TEMP 96; O2SAT 95
--- NOTE | 2016-08-09 12:34 | HHI.PR ---
Subjective Remarks in no acute distress. pain is controlled. no new complaints. Objective Vitals Vital Signs Date Time Temp Pulse Resp B/P Pulse Ox O2 Delivery O2 Flow Rate FiO2 08/09/16 08:15 97.5 63 17 141/81 97 08/09/16 04:51 98.3 62 18 166/79 98 08/09/16 00:15 98.3 78 21 160/78 99 08/08/16 20:00 97.7 68 18 134/74 97 I/O 08/08/16 08/08/16 08/08/16 08/09/16 08/09/16 08/09/16 07:00 15:00 23:00 07:00 15:00 23:00 Intake Total 393 ml 2265 ml 847 ml Output Total 975 ml Balance 393 ml 1290 ml 847 ml Intake Oral 120 ml 1165 ml 240 ml IV Total 273 ml 1100 ml 607 ml Output Urine Total 975 ml # Voids 1 1 2 Result Diagram: 08/07/16 0433 08/07/16 0433 Imaging Last Impressions Lower Extremity CT 08/06/16 0000 Signed Impressions: Service Date/Time: Saturday, August 06, 2016 06:58 - CONCLUSION: Depressed punch type tibial plateau fracture involving the significant amount of the articular cartilage. Subarticular cyst is noted centrally. Jamel Jarrett MD FACR Chest X-Ray 08/05/16 2334 Signed Impressions: Service Date/Time: August 23:50 - CONCLUSION: No acute cardiopulmonary abnormality is identified. Humphrey Armendariz MD Knee X-Ray 08/05/16 0000 Signed Impressions: Service Date/Time: August 22:22 - CONCLUSION: Medial and lateral tibial plateau fractures. The lateral tibial plateau fracture is mildly depressed and displaced but radiographically I don't see any abrupt step-offs. Humphrey Davidson MD Objective Remarks GENERAL: This is a well-nourished, well-developed patient, in no apparent distress. CARDIOVASCULAR: Regular rate and regular rhythm without murmurs, gallops, or rubs. RESPIRATORY: Clear to auscultation. Breath sounds equal bilaterally. No wheezes , rales, or rhonchi. GASTROINTESTINAL: Abdomen soft, non-tender, nondistended. Normal, active bowel sounds MUSCULOSKELETAL: right knee covered with clean dressing. NEURO: Alert & Oriented x4 to person, place, time, situation. Moves all ext x4 Procedures none Medications and IVs Current Medications Oxycodone/ Acetaminophen (Percocet 10-325 Mg) 1 tab ONCE ONCE PO ; Start at 21:45; Stop 08/05/16 at 22:36; Status DC Oxycodone/ Acetaminophen (Percocet 5-325 Mg) 2 tab ONCE ONCE PO Last administered on 08/05/16 23:10; Start 08/05/16 at 22:45; Stop 08/06/16 at 13:47; Status DC IV Flush 2 ml 2 ml UNSCH PRN IVF FLUSH AFTER USING IV ACCESS; Start 08/05/16 at 23:45; Stop 08/05/16 at 23:45; Status DC Sodium Chloride (NS 1000 ml Inj) 1,000 ml @ 100 mls/hr Q10H IV Last administered on 08/09/16 08:17; Start 08/05/16 at 23:40 IV Flush (NS Flush) 2 ml UNSCH PRN FLUSH FLUSH AFTER USING IV ACCESS; Start 08/05/16 at 23:45 IV Flush (NS Flush) 2 ml BID FLUSH Last administered on 08/07/16 21:13; Start 08/06/16 at 09:00 Ondansetron HCl (Zofran Inj) 4 mg Q6H PRN IVP NAUSEA OR VOMITING Last administered on 08/07/16 04:06; Start 08/05/16 at 23:45 Bisacodyl (Dulcolax Supp) 10 mg DAILY PRN DC CONSTIPATION; Start 08/05/16 at 23: 45 Acetaminophen (Tylenol) 650 mg Q6H PRN PO FEVER; Start 08/05/16 at 23:45 Acetaminophen/ Hydrocodone Bitart ([place] 5-325 Mg) 1 tab Q4H PRN PO PAIN SCALE 3 TO 5 Last administered on 08/06/16 10:51; Start 08/05/16 at 23:45; Stop 08/06/16 at 13:47; Status DC Morphine Sulfate (Morphine Inj) 2 mg Q3H PRN IV Pain 6-10 Last administered on 08/06/16 07:24; Start 08/05/16 at 23:45; Stop 08/06/16 at 13:47; Status DC Potassium Chloride (KCl) 40 meq ONCE ONCE PO Last administered on 08/06/16 03: 00; Start 08/06/16 at 02:30; Stop 08/06/16 at 02:37; Status DC Enoxaparin Sodium (Lovenox Inj) 30 mg Q24H SQ Last administered on 08/08/16 14: 32; Start 08/06/16 at 15:00 Acetaminophen/ Hydrocodone Bitart ([place] 7.5-325 Mg) 1 tab Q4H PRN PO pain 1- 5 Last administered on 08/07/16 04:51; Start 08/06/16 at 13:45 Acetaminophen/ Hydrocodone Bitart ([place] 10-325 Mg) 1 tab Q4H PRN PO pain 6-10 Last administered on 08/09/16 10:52; Start 08/06/16 at 13:45 Morphine Sulfate (Morphine Inj) 4 mg Q3H PRN IV PUSH breakthrough pain Last administered on 08/09/16 08:18; Start 08/06/16 at 13:45 Citalopram Hydrobromide (CeleXA) 20 mg DAILY PO Last administered on 08/09/16 08:18; Start 08/07/16 at 09:00 Losartan Potassium (Cozaar) 100 mg DAILY PO Last administered on 08/09/16 08:18 ; Start 08/07/16 at 09:00 Topiramate (Topamax) 50 mg BID PO Last administered on 08/09/16 08:17; Start at 09:00 Venlafaxine HCl (Effexor) 50 mg Q12HR PO Last administered on 08/09/16 08:18; Start 08/07/16 at 09:00 A/P Assessment and Plan A/P 1. Fall: s/p mechanical fall down steps at home, no LOC or head trauma. 2. Right Knee Fx: ortho consult appreciated and recommended; non-op treatment / NWB and dc planning to rehab- continue pain control- f/u with ortho as outpatient. 3. Hypokalemia: replaced. 4. DVT Prophylaxis:on lovenox. Discharge Planning awaiting discharge to rehab- see med list. f/u; pcp and ortho. d/w the patient . Bethanie Bishop MD Aug 09, 2016 12:34
[2016-08-09] MEDS: ENOXAPARIN SODIUM 30 MG/0.3 ML SYRINGE SQ SCH (14:19)
[2016-08-09 16:00] VITALS: BP 134/80; PULSE 76; RESP 20; TEMP 97.5
[2016-08-09 20:00] VITALS: BP 134/68; PULSE 77; RESP 18; TEMP 98.2; O2SAT 94
[2016-08-10 00:04] VITALS: BP 136/65; PULSE 62; RESP 18; TEMP 98.2; O2SAT 93
[2016-08-10 06:17] VITALS: BP 139/78; PULSE 56; RESP 18; TEMP 98.2; O2SAT 97
[2016-08-10 07:41] VITALS: BP 186/81; PULSE 53; RESP 16; TEMP 98; O2SAT 99
--- NOTE | 2016-08-10 08:36 | MB ---
cc: LUIS TORRES DATE OF CONSULTATION: 08/06/2016. REASON FOR CONSULTATION/CHIEF COMPLAINT: Right knee pain status post fall. HISTORY OF PRESENT ILLNESS: The patient is a 51-year-old white female who presents today after suffering a fall at home. She states she was walking her dog. She reports her dog is blind. She reports the dog would not come back up the stairs afterwards. She went down to get the dog when she tripped and fell. She had immediate pain in the right knee. She denies pain anywhere else. She states the pain is aching and throbbing. She reports she is unable to bear weight. She originally went to [facility] where x-rays were performed. She was evaluated there and sent home and told to follow up with orthopedics. However, she lives on the third floor of an apartment complex and cannot navigate the stairs with a walker and a knee brace. So she sought out medical attention [facility]. X-rays were performed here as well as a CT scan. She states that she denies any numbness, tingling or radiation of symptoms and that the only pain she has is in her right knee. REVIEW OF SYSTEMS: A complete ten-point review of systems was completed and is negative except for what is mentioned in the history of present illness. PAST MEDICAL HISTORY: Noncontributory. PAST SURGICAL HISTORY: None. ALLERGIES: NO KNOWN ALLERGIES. FAMILY HISTORY: Noncontributory. SOCIAL HISTORY Negative for alcohol. She does admit to tobacco. HOME MEDICATIONS: 1. She states that she is on Wellbutrin. 2. Losartan. 3. Phentermine. 4. Topiramate. 5. Citalopram. 6. Venlafaxine. 7. Diltiazem. 8. Oxycodone. INPATIENT MEDICATIONS: For a complete list of inpatient medications, please see the MAR. PHYSICAL EXAMINATION: VITAL SIGNS: Pulse 68, respiratory rate 20, blood pressure 114/58, oxygen saturation is 98% on room air. GENERAL: A well-developed, well-nourished white female in a mild amount of distress and pain. HEAD: Normocephalic and atraumatic. EYES: Extraocular motions intact. Pupils equal, round and reactive to light. EARS: Hearing intact bilaterally. CRANIAL NERVES: Cranial nerves II through XII are grossly intact. NECK: The neck is supple with no evidence of lymphadenopathy. LUNGS: No use of accessory muscles while breathing and no audible wheezing appreciated. HEART: No grade 4 murmur present. MUSCULOSKELETAL: Right lower extremity: knee brace is present. She has an ice cap present. She has good dorsiflexion of the ankle. Her calf is soft and nontender and her compartments are soft. No pain in the hip. Left lower extremity: Full motion of the hip, knee, ankle and toes and no pain. Full sensation distally. Bilateral upper extremities: Full motion of the shoulders, elbows, wrists and fingers and no pain. Full sensation distally. IMAGING STUDIES: X-rays of the right knee were performed at [facility] and were reviewed which show what appears to be a minimally displaced tibial plateau fracture. CT scan of the right knee was reviewed, which shows minimally impacted lateral tibial plateau fracture, overall well-aligned. ASSESSMENT: Right tibial plateau fracture. PLAN: Plan at this point, would be appropriate alignment of the fracture. I would recommend conservative treatment. I believe this patient should do well with nonsurgical options. I advised the patient that she needs to remain strictly non-weightbearing and avoid any active leg lifts. She will maintain her knee brace and ice cap. She will elevate. She may resume her diet. Due to the fact that she lives on the third floor of an apartment complex, I think that she would do well with an admission for pain control as well as being set up for discharge to a rehab facility. I have spoken with the emergency room nurse and they are aware. The patient also agrees with this plan. She will resume her diet and remain non-weightbearing. We will follow up with her in the office in two weeks for repeat x-rays and a recheck of the right knee. Otherwise, she is orthopedically cleared for discharge to rehab. All questions were answered and the patient understood the above. The patient was discussed with Dr. Mera and he agrees with the above dictation. Luis CEJA /1:38 PM /8:34 AM
[2016-08-10] MEDS: LOSARTAN 50 MG TAB PO SCH (08:55)
[2016-08-10] MEDS: VENLAFAXINE HCL 25 MG TAB PO SCH ×2 (08:56→21:51)
[2016-08-10] MEDS: TOPIRAMATE 25 MG TAB PO SCH ×2 (08:56→21:51)
[2016-08-10] MEDS: CITALOPRAM HYDROBROMIDE 20 MG TAB PO SCH (08:56)
[2016-08-10] MEDS: SODIUM CHLORIDE 0.9% FLUSH 5 ML FLUSH FLUSH SCH ×2 (09:04→21:52)
[2016-08-10] MEDS: ACETAMINOPHEN/HYDROcodone 325 MG/7.5 MG TAB PO PRN ×2 (09:04→15:52)
[2016-08-10 11:43] VITALS: BP 163/87; PULSE 58; RESP 16; TEMP 96.1; O2SAT 95
[2016-08-10] MEDS: SODIUM CHLOR 0.9% 1000 ML INJ 1,000 ML IV SCH (12:00)
--- NOTE | 2016-08-10 12:28 | HHI.PR ---
Subjective Remarks resting comfortably with no distress. no new complaints. pain is controlled. Objective Vitals Vital Signs Date Time Temp Pulse Resp B/P Pulse Ox O2 Delivery O2 Flow Rate FiO2 08/10/16 11:43 96.1 58 16 163/87 95 08/10/16 07:41 98.0 53 16 186/81 99 08/10/16 06:17 98.2 56 18 139/78 97 08/10/16 00:04 98.2 62 18 136/65 93 08/09/16 22:52 16 08/09/16 20:23 16 08/09/16 20:00 98.2 77 18 134/68 94 08/09/16 16:00 97.5 76 20 134/80 I/O 08/09/16 08/09/16 08/09/16 08/10/16 08/10/16 08/10/16 07:00 15:00 23:00 07:00 15:00 23:00 Intake Total 847 ml 1010 ml Output Total 400 ml 500 ml Balance 847 ml 1010 ml -400 ml -500 ml Intake Oral 240 ml IV Total 607 ml 1010 ml Output Urine Total 400 ml 500 ml # Voids 2 5 1 Result Diagram: 08/07/16 0433 08/07/16 0433 Imaging Last Impressions Lower Extremity CT 08/06/16 0000 Signed Impressions: Service Date/Time: Saturday, August 06, 2016 06:58 - CONCLUSION: Depressed punch type tibial plateau fracture involving the significant amount of the articular cartilage. Subarticular cyst is noted centrally. Jamel Jarrett MD FACR Chest X-Ray 08/05/16 2334 Signed Impressions: Service Date/Time: August 23:50 - CONCLUSION: No acute cardiopulmonary abnormality is identified. Humphrey Armendariz MD Knee X-Ray 08/05/16 0000 Signed Impressions: Service Date/Time: August 22:22 - CONCLUSION: Medial and lateral tibial plateau fractures. The lateral tibial plateau fracture is mildly depressed and displaced but radiographically I don't see any abrupt step-offs. Humphrey Davidson MD Objective Remarks GENERAL: This is a well-nourished, well-developed patient, in no apparent distress. CARDIOVASCULAR: Regular rate and regular rhythm without murmurs, gallops, or rubs. RESPIRATORY: Clear to auscultation. Breath sounds equal bilaterally. No wheezes , rales, or rhonchi. GASTROINTESTINAL: Abdomen soft, non-tender, nondistended. Normal, active bowel sounds MUSCULOSKELETAL: right knee covered with clean dressing. NEURO: Alert & Oriented x4 to person, place, time, situation. Moves all ext x4 Procedures none Medications and IVs Current Medications Oxycodone/ Acetaminophen (Percocet 10-325 Mg) 1 tab ONCE ONCE PO ; Start at 21:45; Stop 08/05/16 at 22:36; Status DC Oxycodone/ Acetaminophen (Percocet 5-325 Mg) 2 tab ONCE ONCE PO Last administered on 08/05/16 23:10; Start 08/05/16 at 22:45; Stop 08/06/16 at 13:47; Status DC IV Flush 2 ml 2 ml UNSCH PRN IVF FLUSH AFTER USING IV ACCESS; Start 08/05/16 at 23:45; Stop 08/05/16 at 23:45; Status DC Sodium Chloride (NS 1000 ml Inj) 1,000 ml @ 100 mls/hr Q10H IV Last administered on 08/09/16 17:35; Start 08/05/16 at 23:40 IV Flush (NS Flush) 2 ml UNSCH PRN FLUSH FLUSH AFTER USING IV ACCESS; Start 08/05/16 at 23:45 IV Flush (NS Flush) 2 ml BID FLUSH Last administered on 08/10/16 09:04; Start 08/06/16 at 09:00 Ondansetron HCl (Zofran Inj) 4 mg Q6H PRN IVP NAUSEA OR VOMITING Last administered on 08/07/16 04:06; Start 08/05/16 at 23:45 Bisacodyl (Dulcolax Supp) 10 mg DAILY PRN [place] CONSTIPATION; Start 08/05/16 at 23: 45 Acetaminophen (Tylenol) 650 mg Q6H PRN PO FEVER; Start 08/05/16 at 23:45 Acetaminophen/ Hydrocodone Bitart ([place] 5-325 Mg) 1 tab Q4H PRN PO PAIN SCALE 3 TO 5 Last administered on 08/06/16 10:51; Start 08/05/16 at 23:45; Stop 08/06/16 at 13:47; Status DC Morphine Sulfate (Morphine Inj) 2 mg Q3H PRN IV Pain 6-10 Last administered on 08/06/16 07:24; Start 08/05/16 at 23:45; Stop 08/06/16 at 13:47; Status DC Potassium Chloride (KCl) 40 meq ONCE ONCE PO Last administered on 08/06/16 03: 00; Start 08/06/16 at 02:30; Stop 08/06/16 at 02:37; Status DC Enoxaparin Sodium (Lovenox Inj) 30 mg Q24H SQ Last administered on 08/09/16 14: 19; Start 08/06/16 at 15:00 Acetaminophen/ Hydrocodone Bitart ([place] 7.5-325 Mg) 1 tab Q4H PRN PO pain 1- 5 Last administered on 08/10/16 09:04; Start 08/06/16 at 13:45 Acetaminophen/ Hydrocodone Bitart ([place] 10-325 Mg) 1 tab Q4H PRN PO pain 6-10 Last administered on 08/09/16 21:47; Start 08/06/16 at 13:45 Morphine Sulfate (Morphine Inj) 4 mg Q3H PRN IV PUSH breakthrough pain Last administered on 08/09/16 19:31; Start 08/06/16 at 13:45 Citalopram Hydrobromide (CeleXA) 20 mg DAILY PO Last administered on 08/10/16 08:56; Start 08/07/16 at 09:00 Losartan Potassium (Cozaar) 100 mg DAILY PO Last administered on 08/10/16 08:55 ; Start 08/07/16 at 09:00 Topiramate (Topamax) 50 mg BID PO Last administered on 08/10/16 08:56; Start at 09:00 Venlafaxine HCl (Effexor) 50 mg Q12HR PO Last administered on 08/10/16 08:56; Start 08/07/16 at 09:00 A/P Assessment and Plan A/P 1. Fall: s/p mechanical fall down steps at home, no LOC or head trauma. 2. Right Knee Fx: ortho consult appreciated and recommended; non-op treatment / NWB and dc planning to rehab- continue pain control- f/u with ortho as outpatient. 3. Hypokalemia: replaced. 4. DVT Prophylaxis:on lovenox. Discharge Planning awaiting discharge to rehab- d/w case management. Bethanie Bishop MD Aug 10, 2016 12:28
[2016-08-10] MEDS: MORPHINE SULFATE 4 MG/ML INJ IV PUSH PRN ×3 (13:25→23:15)
[2016-08-10 14:30] VITALS: BP 127/77; PULSE 80; RESP 20; TEMP 97.4; O2SAT 97
[2016-08-10] MEDS: ENOXAPARIN SODIUM 30 MG/0.3 ML SYRINGE SQ SCH (15:51)
[2016-08-10 19:52] VITALS: BP 133/78; PULSE 93; RESP 18; TEMP 97.1; O2SAT 95
[2016-08-10] MEDS: ACETAMINOPHEN/HYDROcodone 325 MG/10 MG TAB PO PRN (21:52)
[2016-08-11 00:55] VITALS: BP 145/72; PULSE 78; RESP 18; TEMP 97.1; O2SAT 93
[2016-08-11 04:52] VITALS: BP 188/76; PULSE 69; RESP 18; TEMP 97.2; O2SAT 94
[2016-08-11 07:43] VITALS: BP 177/77; PULSE 54; RESP 18; TEMP 98; O2SAT 99
--- NOTE | 2016-08-11 08:21 | HHI.PR ---
Subjective Remarks resting comfortably with no distress. pain is controlled. no new complaints. Objective Vitals Vital Signs Date Time Temp Pulse Resp B/P Pulse Ox O2 Delivery O2 Flow Rate FiO2 08/11/16 07:43 98.0 54 18 177/77 99 08/11/16 04:52 97.2 69 18 188/76 94 08/11/16 00:55 97.1 78 18 145/72 93 08/11/16 00:18 22 08/11/16 00:18 22 08/10/16 19:52 97.1 93 18 133/78 95 08/10/16 16:52 14 08/10/16 14:30 97.4 80 20 127/77 97 08/10/16 11:43 96.1 58 16 163/87 95 Result Diagram: 08/07/16 0433 08/07/16 0433 Imaging Last Impressions Lower Extremity CT 08/06/16 0000 Signed Impressions: Service Date/Time: Saturday, August 06, 2016 06:58 - CONCLUSION: Depressed punch type tibial plateau fracture involving the significant amount of the articular cartilage. Subarticular cyst is noted centrally. Jamel Jarrett MD FACR Chest X-Ray 08/05/16 2334 Signed Impressions: Service Date/Time: August 23:50 - CONCLUSION: No acute cardiopulmonary abnormality is identified. Humphrey Armendariz MD Knee X-Ray 08/05/16 0000 Signed Impressions: Service Date/Time: August 22:22 - CONCLUSION: Medial and lateral tibial plateau fractures. The lateral tibial plateau fracture is mildly depressed and displaced but radiographically I don't see any abrupt step-offs. Humphrey Davidson MD Objective Remarks GENERAL: This is a well-nourished, well-developed patient, in no apparent distress. CARDIOVASCULAR: Regular rate and regular rhythm without murmurs, gallops, or rubs. RESPIRATORY: Clear to auscultation. Breath sounds equal bilaterally. No wheezes , rales, or rhonchi. GASTROINTESTINAL: Abdomen soft, non-tender, nondistended. Normal, active bowel sounds MUSCULOSKELETAL: right knee covered with clean dressing. NEURO: Alert & Oriented x4 to person, place, time, situation. Moves all ext x4 Procedures none Medications and IVs Current Medications Oxycodone/ Acetaminophen (Percocet 10-325 Mg) 1 tab ONCE ONCE PO ; Start at 21:45; Stop 08/05/16 at 22:36; Status DC Oxycodone/ Acetaminophen (Percocet 5-325 Mg) 2 tab ONCE ONCE PO Last administered on 08/05/16 23:10; Start 08/05/16 at 22:45; Stop 08/06/16 at 13:47; Status DC IV Flush 2 ml 2 ml UNSCH PRN IVF FLUSH AFTER USING IV ACCESS; Start 08/05/16 at 23:45; Stop 08/05/16 at 23:45; Status DC Sodium Chloride (NS 1000 ml Inj) 1,000 ml @ 100 mls/hr Q10H IV Last administered on 08/09/16 17:35; Start 08/05/16 at 23:40; Stop 08/10/16 at 12:49; Status DC IV Flush (NS Flush) 2 ml UNSCH PRN FLUSH FLUSH AFTER USING IV ACCESS; Start 08/05/16 at 23:45 IV Flush (NS Flush) 2 ml BID FLUSH Last administered on 08/10/16 21:52; Start 08/06/16 at 09:00 Ondansetron HCl (Zofran Inj) 4 mg Q6H PRN IVP NAUSEA OR VOMITING Last administered on 08/07/16 04:06; Start 08/05/16 at 23:45 Bisacodyl (Dulcolax Supp) 10 mg DAILY PRN [place] CONSTIPATION; Start 08/05/16 at 23: 45 Acetaminophen (Tylenol) 650 mg Q6H PRN PO FEVER; Start 08/05/16 at 23:45 Acetaminophen/ Hydrocodone Bitart ([place] 5-325 Mg) 1 tab Q4H PRN PO PAIN SCALE 3 TO 5 Last administered on 08/06/16 10:51; Start 08/05/16 at 23:45; Stop 08/06/16 at 13:47; Status DC Morphine Sulfate (Morphine Inj) 2 mg Q3H PRN IV Pain 6-10 Last administered on 08/06/16 07:24; Start 08/05/16 at 23:45; Stop 08/06/16 at 13:47; Status DC Potassium Chloride (KCl) 40 meq ONCE ONCE PO Last administered on 08/06/16 03: 00; Start 08/06/16 at 02:30; Stop 08/06/16 at 02:37; Status DC Enoxaparin Sodium (Lovenox Inj) 30 mg Q24H SQ Last administered on 08/10/16 15: 51; Start 08/06/16 at 15:00 Acetaminophen/ Hydrocodone Bitart ([place] 7.5-325 Mg) 1 tab Q4H PRN PO pain 1- 5 Last administered on 08/10/16 15:52; Start 08/06/16 at 13:45 Acetaminophen/ Hydrocodone Bitart ([place] 10-325 Mg) 1 tab Q4H PRN PO pain 6-10 Last administered on 08/10/16 21:52; Start 08/06/16 at 13:45 Morphine Sulfate (Morphine Inj) 4 mg Q3H PRN IV PUSH breakthrough pain Last administered on 08/10/16 23:15; Start 08/06/16 at 13:45 Citalopram Hydrobromide (CeleXA) 20 mg DAILY PO Last administered on 08/10/16 08:56; Start 08/07/16 at 09:00 Losartan Potassium (Cozaar) 100 mg DAILY PO Last administered on 08/10/16 08:55 ; Start 08/07/16 at 09:00 Topiramate (Topamax) 50 mg BID PO Last administered on 08/10/16 21:51; Start at 09:00 Venlafaxine HCl (Effexor) 50 mg Q12HR PO Last administered on 08/10/16 21:51; Start 08/07/16 at 09:00 A/P Assessment and Plan A/P 1. Fall: s/p mechanical fall down steps at home, no LOC or head trauma. continue PT. 2. Right Knee Fx: ortho consult appreciated and recommended; non-op treatment / NWB and dc planning to rehab- continue pain control and PT- f/u with ortho as outpatient. 3. Hypokalemia: replaced. 4. DVT Prophylaxis:on lovenox. Discharge Planning awaiting discharge to rehab- case management dc planning in progress. Bethanie Bishop MD Aug 11, 2016 08:20
[2016-08-11] MEDS: CITALOPRAM HYDROBROMIDE 20 MG TAB PO SCH (09:34)
[2016-08-11] MEDS: TOPIRAMATE 25 MG TAB PO SCH ×2 (09:34→20:51)
[2016-08-11] MEDS: VENLAFAXINE HCL 25 MG TAB PO SCH ×2 (09:34→20:51)
[2016-08-11] MEDS: LOSARTAN 50 MG TAB PO SCH (09:34)
[2016-08-11] MEDS: ACETAMINOPHEN/HYDROcodone 325 MG/10 MG TAB PO PRN ×3 (09:34→20:51)
[2016-08-11] MEDS: SODIUM CHLORIDE 0.9% FLUSH 5 ML FLUSH FLUSH SCH ×2 (09:35→20:55)
[2016-08-11 11:57] VITALS: BP 127/84; PULSE 71; RESP 18; TEMP 98.3; O2SAT 97
[2016-08-11] MEDS: ENOXAPARIN SODIUM 30 MG/0.3 ML SYRINGE SQ SCH (14:25)
[2016-08-11 14:40] VITALS: BP 142/87; PULSE 96; RESP 18; TEMP 97.6
[2016-08-11] MEDS: MORPHINE SULFATE 4 MG/ML INJ IV PUSH PRN (16:33)
[2016-08-11 20:06] VITALS: BP 123/70; PULSE 86; RESP 20; TEMP 98.3; O2SAT 95
[2016-08-12 00:14] VITALS: BP 144/89; PULSE 82; RESP 20; TEMP 97.4; O2SAT 96
[2016-08-12] MEDS: ACETAMINOPHEN/HYDROcodone 325 MG/10 MG TAB PO PRN ×5 (01:15→20:25)
[2016-08-12 04:20] VITALS: BP 131/72; PULSE 51; RESP 20; TEMP 97.6; O2SAT 96
--- NOTE | 2016-08-12 07:34 | PD.ORT.PN ---
Subjective Subjective Remarks s/p right tibial plateau fracture doing better. pain improving. working with case management on rehab options Objective Vitals Vital Signs Date Time Temp Pulse Resp B/P Pulse Ox O2 Delivery O2 Flow Rate FiO2 08/12/16 04:20 97.6 51 20 131/72 96 08/12/16 00:14 97.4 82 20 144/89 96 08/11/16 20:06 98.3 86 20 123/70 95 08/11/16 16:52 18 08/11/16 16:33 20 08/11/16 14:40 97.6 96 18 142/87 08/11/16 11:57 98.3 71 18 127/84 97 08/11/16 07:43 98.0 54 18 177/77 99 I/O 08/11/16 08/11/16 08/11/16 08/12/16 08/12/16 08/12/16 07:00 15:00 23:00 07:00 15:00 23:00 Intake Total 960 ml Balance 960 ml Intake Oral 960 ml # Voids 3 Imaging Last 24 hours Impressions Lower Extremity CT 08/06/16 0000 Signed Impressions: Service Date/Time: Saturday, August 06, 2016 06:58 - CONCLUSION: Depressed punch type tibial plateau fracture involving the significant amount of the articular cartilage. Subarticular cyst is noted centrally. Jamel Jarrett MD FACR Chest X-Ray 08/05/16 4294 Signed Impressions: Service Date/Time: August 23:50 - CONCLUSION: No acute cardiopulmonary abnormality is identified. Humphrey Armendariz MD Objective Remarks RLE: + knee brace. + ice cuff. NVI distally. compartments soft Assessment & Plan Assessment and Plan 1) Right Tibial Plateau Fx -nonop -NWB -maintain brace -recmomend DC to rehab -f/u with [facility] or [facility] in 2 weeks -ortho cleared for DC to rehab Luis Kelley Aug 12, 2016 07:34
--- NOTE | 2016-08-12 07:53 | HHI.PR ---
Subjective Remarks resting comfortably with no distress. pain is controlled. no new complaints. Objective Vitals Vital Signs Date Time Temp Pulse Resp B/P Pulse Ox O2 Delivery O2 Flow Rate FiO2 08/12/16 04:20 97.6 51 20 131/72 96 08/12/16 00:14 97.4 82 20 144/89 96 08/11/16 20:06 98.3 86 20 123/70 95 08/11/16 16:52 18 08/11/16 16:33 20 08/11/16 14:40 97.6 96 18 142/87 08/11/16 11:57 98.3 71 18 127/84 97 I/O 08/11/16 08/11/16 08/11/16 08/12/16 08/12/16 08/12/16 07:00 15:00 23:00 07:00 15:00 23:00 Intake Total 960 ml Balance 960 ml Intake Oral 960 ml # Voids 3 Imaging Last Impressions Lower Extremity CT 08/06/16 0000 Signed Impressions: Service Date/Time: Saturday, August 06, 2016 06:58 - CONCLUSION: Depressed punch type tibial plateau fracture involving the significant amount of the articular cartilage. Subarticular cyst is noted centrally. Jamel Jarrett MD FACR Chest X-Ray 08/05/16 2334 Signed Impressions: Service Date/Time: August 23:50 - CONCLUSION: No acute cardiopulmonary abnormality is identified. Humphrey Armendariz MD Knee X-Ray 08/05/16 0000 Signed Impressions: Service Date/Time: August 22:22 - CONCLUSION: Medial and lateral tibial plateau fractures. The lateral tibial plateau fracture is mildly depressed and displaced but radiographically I don't see any abrupt step-offs. Humphrey Davidson MD Objective Remarks GENERAL: This is a well-nourished, well-developed patient, in no apparent distress. CARDIOVASCULAR: Regular rate and regular rhythm without murmurs, gallops, or rubs. RESPIRATORY: Clear to auscultation. Breath sounds equal bilaterally. No wheezes , rales, or rhonchi. GASTROINTESTINAL: Abdomen soft, non-tender, nondistended. Normal, active bowel sounds MUSCULOSKELETAL: right knee covered with clean dressing. NEURO: Alert & Oriented x4 to person, place, time, situation. Moves all ext x4 Procedures none Medications and IVs Current Medications Oxycodone/ Acetaminophen (Percocet 10-325 Mg) 1 tab ONCE ONCE PO ; Start at 21:45; Stop 08/05/16 at 22:36; Status DC Oxycodone/ Acetaminophen (Percocet 5-325 Mg) 2 tab ONCE ONCE PO Last administered on 08/05/16 23:10; Start 08/05/16 at 22:45; Stop 08/06/16 at 13:47; Status DC IV Flush 2 ml 2 ml UNSCH PRN IVF FLUSH AFTER USING IV ACCESS; Start 08/05/16 at 23:45; Stop 08/05/16 at 23:45; Status DC Sodium Chloride (NS 1000 ml Inj) 1,000 ml @ 100 mls/hr Q10H IV Last administered on 08/09/16 17:35; Start 08/05/16 at 23:40; Stop 08/10/16 at 12:49; Status DC IV Flush (NS Flush) 2 ml UNSCH PRN FLUSH FLUSH AFTER USING IV ACCESS; Start 08/05/16 at 23:45 IV Flush (NS Flush) 2 ml BID FLUSH Last administered on 08/11/16 20:55; Start 08/06/16 at 09:00 Ondansetron HCl (Zofran Inj) 4 mg Q6H PRN IVP NAUSEA OR VOMITING Last administered on 08/07/16 04:06; Start 08/05/16 at 23:45 Bisacodyl (Dulcolax Supp) 10 mg DAILY PRN [place] CONSTIPATION; Start 08/05/16 at 23: 45 Acetaminophen (Tylenol) 650 mg Q6H PRN PO FEVER; Start 08/05/16 at 23:45 Acetaminophen/ Hydrocodone Bitart ([place] 5-325 Mg) 1 tab Q4H PRN PO PAIN SCALE 3 TO 5 Last administered on 08/06/16 10:51; Start 08/05/16 at 23:45; Stop 08/06/16 at 13:47; Status DC Morphine Sulfate (Morphine Inj) 2 mg Q3H PRN IV Pain 6-10 Last administered on 08/06/16 07:24; Start 08/05/16 at 23:45; Stop 08/06/16 at 13:47; Status DC Potassium Chloride (KCl) 40 meq ONCE ONCE PO Last administered on 08/06/16 03: 00; Start 08/06/16 at 02:30; Stop 08/06/16 at 02:37; Status DC Enoxaparin Sodium (Lovenox Inj) 30 mg Q24H SQ Last administered on 08/11/16 14: 25; Start 08/06/16 at 15:00 Acetaminophen/ Hydrocodone Bitart ([place] 7.5-325 Mg) 1 tab Q4H PRN PO pain 1- 5 Last administered on 08/10/16 15:52; Start 08/06/16 at 13:45 Acetaminophen/ Hydrocodone Bitart ([place] 10-325 Mg) 1 tab Q4H PRN PO pain 6-10 Last administered on 08/12/16 06:36; Start 08/06/16 at 13:45 Morphine Sulfate (Morphine Inj) 4 mg Q3H PRN IV PUSH breakthrough pain Last administered on 08/11/16 16:33; Start 08/06/16 at 13:45; Stop 08/11/16 at 18:44; Status DC Citalopram Hydrobromide (CeleXA) 20 mg DAILY PO Last administered on 08/11/16 09:34; Start 08/07/16 at 09:00 Losartan Potassium (Cozaar) 100 mg DAILY PO Last administered on 08/11/16 09:34 ; Start 08/07/16 at 09:00 Topiramate (Topamax) 50 mg BID PO Last administered on 08/11/16 20:51; Start at 09:00 Venlafaxine HCl (Effexor) 50 mg Q12HR PO Last administered on 08/11/16 20:51; Start 08/07/16 at 09:00 A/P Assessment and Plan A/P 1. Fall: s/p mechanical fall down steps at home, no LOC or head trauma. continue PT. 2. Right Knee Fx: ortho consult appreciated and recommended; non-op treatment / NWB and dc planning to rehab- continue pain control and PT- f/u with ortho as outpatient. 3. Hypokalemia: replaced. 4.constipation; laxatives as needed. 5. DVT Prophylaxis:on lovenox. Discharge Planning awaiting discharge to rehab- case management dc planning in progress. Bethanie Bishop MD Aug 12, 2016 07:52
[2016-08-12 08:10] VITALS: BP 124/82; PULSE 56; RESP 13; TEMP 96.2; O2SAT 95
[2016-08-12] MEDS ORDERED: MAGNESIUM HYDROXIDE SUSP 30 ML CUP PO PRN (09:00)
[2016-08-12] MEDS: SODIUM CHLORIDE 0.9% FLUSH 5 ML FLUSH FLUSH SCH ×2 (09:16→20:31)
[2016-08-12] MEDS: TOPIRAMATE 25 MG TAB PO SCH ×2 (09:16→20:25)
[2016-08-12] MEDS: VENLAFAXINE HCL 25 MG TAB PO SCH ×2 (09:16→20:25)
[2016-08-12] MEDS: LOSARTAN 50 MG TAB PO SCH (09:16)
[2016-08-12] MEDS: CITALOPRAM HYDROBROMIDE 20 MG TAB PO SCH (09:16)
[2016-08-12 11:45] VITALS: BP 121/77; PULSE 54; RESP 20; TEMP 96; O2SAT 94
[2016-08-12] MEDS: ENOXAPARIN SODIUM 30 MG/0.3 ML SYRINGE SQ SCH (15:34)
[2016-08-12 15:48] VITALS: BP 138/68; PULSE 83; RESP 18; TEMP 96.9; O2SAT 98
[2016-08-12] MEDS ORDERED: KETOROLAC TROMETHAMINE 30 MG/ML (IVP) VIAL IV PUSH ONE (22:30)
[2016-08-13] MEDS: ACETAMINOPHEN/HYDROcodone 325 MG/10 MG TAB PO PRN ×3 (01:53→21:11)
[2016-08-13 04:23] VITALS: BP 125/75; PULSE 80; RESP 18; TEMP 97.9; O2SAT 96
[2016-08-13 08:29] VITALS: BP 149/77; PULSE 66; RESP 14; O2SAT 95
[2016-08-13] MEDS: LOSARTAN 50 MG TAB PO SCH (08:30)
[2016-08-13] MEDS: VENLAFAXINE HCL 25 MG TAB PO SCH ×2 (08:30→21:10)
[2016-08-13] MEDS: TOPIRAMATE 25 MG TAB PO SCH ×2 (08:30→21:11)
[2016-08-13] MEDS: SODIUM CHLORIDE 0.9% FLUSH 5 ML FLUSH FLUSH SCH ×2 (08:31→21:10)
[2016-08-13] MEDS: CITALOPRAM HYDROBROMIDE 20 MG TAB PO SCH (08:31)
[2016-08-13 13:29] VITALS: BP 125/76; PULSE 80; RESP 18; TEMP 98; O2SAT 98
--- NOTE | 2016-08-13 13:48 | HHI.PR ---
Subjective Remarks Follow-up for right knee fracture. The patient states her pain is reasonably controlled. She had a bowel movement today, but is requesting a stool softener. Eating okay, doesn't care for the food. Awaiting rehabilitation placement, discussed with case management. Objective Vitals Vital Signs Date Time Temp Pulse Resp B/P Pulse Ox O2 Delivery O2 Flow Rate FiO2 08/13/16 13:29 98.0 80 18 125/76 98 08/13/16 09:31 14 08/13/16 08:29 66 14 149/77 95 08/13/16 04:23 97.9 80 18 125/75 96 08/12/16 23:54 18 08/12/16 15:48 96.9 83 18 138/68 98 Imaging Last Impressions Lower Extremity CT 08/06/16 0000 Signed Impressions: Service Date/Time: Saturday, August 06, 2016 06:58 - CONCLUSION: Depressed punch type tibial plateau fracture involving the significant amount of the articular cartilage. Subarticular cyst is noted centrally. Jamel Jarrett MD FACR Chest X-Ray 08/05/16 2334 Signed Impressions: Service Date/Time: August 23:50 - CONCLUSION: No acute cardiopulmonary abnormality is identified. Humphrey Armendariz MD Knee X-Ray 08/05/16 0000 Signed Impressions: Service Date/Time: August 22:22 - CONCLUSION: Medial and lateral tibial plateau fractures. The lateral tibial plateau fracture is mildly depressed and displaced but radiographically I don't see any abrupt step-offs. Humphrey Davidson MD Objective Remarks GENERAL: Well-developed well-nourished. In no acute distress. SKIN: Warm and dry. No lesions noted. HEENT: Normocephalic. Pupils equal and round. Mucous membranes pink and moist. CARDIOVASCULAR: Regular rate and rhythm. No murmur appreciated. RESPIRATORY: No accessory muscle use. Clear to auscultation. Breath sounds equal bilaterally. GASTROINTESTINAL: Abdomen soft, non-tender, nondistended. Bowel sounds x4. MUSCULOSKELETAL: Right knee immobilizer with ice brace. No clubbing or cyanosis. No edema. Distal pulses intact. NEUROLOGICAL: Awake and alert. No focal neurological deficits. Moves upper and lower extremities spontaneously. Normal speech. PSYCHIATRIC: Appropriate mood and affect; insight and judgment normal. Procedures none A/P Problem List: (1) Fall ICD Code: W19.XXXA Status: Acute (2) Tibial plateau fracture, right ICD Code: S82.141A Status: Acute (3) Hypokalemia ICD Code: E87.6 Status: Resolved Assessment and Plan 51-year-old female with no significant past medical history presented with right knee pain after a fall Right tibial plateau fracture s/p mechanical fall: Fracture seen on CT right knee. Orthopedics were consulted, appreciate input, recommended nonoperative management, NWB, maintain brace, rehabilitation placement. Continue PT. Case management consulted for rehabilitation placement. Pain control with [place] as needed with a bowel regimen. DVT prophylaxis: Lovenox Plan of care discussed with Dr. Lugo Discharge Planning Discharge to SNF when arranged. Problem Qualifiers (1) Fall: Qualified Code: W19.XXXA - Fall, initial encounter (2) Tibial plateau fracture, right: Qualified Code: S82.141A - Tibial plateau fracture, right, closed, initial encounter Eulalio Galeano Aug 13, 2016 13:48 Jossy Lugo MD Aug 13, 2016 16:16
[2016-08-13] MEDS: ENOXAPARIN SODIUM 30 MG/0.3 ML SYRINGE SQ SCH (15:00)
[2016-08-13 17:05] VITALS: BP 105/59; PULSE 75; RESP 16; TEMP 97.1; O2SAT 97
[2016-08-13 20:23] VITALS: BP 139/77; PULSE 69; RESP 18; TEMP 97.8; O2SAT 96
[2016-08-13] MEDS: DOCUSATE SODIUM 50 MG/SENNA 8.6 MG TAB PO SCH (21:10)
[2016-08-14 00:28] VITALS: BP 144/74; PULSE 72; RESP 19; TEMP 98.3; O2SAT 95
[2016-08-14] MEDS: ACETAMINOPHEN/HYDROcodone 325 MG/10 MG TAB PO PRN ×5 (01:21→22:53)
[2016-08-14 03:44] VITALS: BP_SYST 128; BP_SYST 130; BP_DIAS 65; BP_DIAS 79; PULSE 65; PULSE 70; RESP 19; TEMP 98.2; O2SAT 98
[2016-08-14] MEDS: CITALOPRAM HYDROBROMIDE 20 MG TAB PO SCH (08:11)
[2016-08-14] MEDS: TOPIRAMATE 25 MG TAB PO SCH ×2 (08:11→20:27)
[2016-08-14] MEDS: LOSARTAN 50 MG TAB PO SCH (08:11)
[2016-08-14] MEDS: SODIUM CHLORIDE 0.9% FLUSH 5 ML FLUSH FLUSH SCH ×2 (08:11→20:27)
[2016-08-14] MEDS: DOCUSATE SODIUM 50 MG/SENNA 8.6 MG TAB PO SCH ×2 (08:11→20:27)
[2016-08-14] MEDS: VENLAFAXINE HCL 25 MG TAB PO SCH ×2 (08:20→20:26)
[2016-08-14 08:35] VITALS: BP 146/69; PULSE 63; RESP 17; TEMP 98.3; O2SAT 96
[2016-08-14] MEDS ORDERED: ACETAMINOPHEN/HYDROcodone 325 MG/5 MG TAB PO PRN (09:30)
--- NOTE | 2016-08-14 09:30 | HHI.PR ---
Subjective Remarks Follow-up for right knee fracture. Pain is reasonably controlled, asking if [place] can be increased with therapy. Positive BM. Eager to go to rehabilitation. Objective Vitals Vital Signs Date Time Temp Pulse Resp B/P Pulse Ox O2 Delivery O2 Flow Rate FiO2 08/14/16 08:35 98.3 63 17 146/69 96 08/14/16 03:44 98.2 65 19 128/79 98 08/14/16 00:28 98.3 72 19 144/74 95 08/13/16 20:23 97.8 69 18 139/77 96 08/13/16 17:05 97.1 75 16 105/59 97 08/13/16 13:29 98.0 80 18 125/76 98 08/13/16 09:31 14 Imaging Last Impressions Lower Extremity CT 08/06/16 0000 Signed Impressions: Service Date/Time: Saturday, August 06, 2016 06:58 - CONCLUSION: Depressed punch type tibial plateau fracture involving the significant amount of the articular cartilage. Subarticular cyst is noted centrally. Jamel Jarrett MD FACR Chest X-Ray 08/05/16 2334 Signed Impressions: Service Date/Time: August 23:50 - CONCLUSION: No acute cardiopulmonary abnormality is identified. Humphrey Armendariz MD Knee X-Ray 08/05/16 0000 Signed Impressions: Service Date/Time: August 22:22 - CONCLUSION: Medial and lateral tibial plateau fractures. The lateral tibial plateau fracture is mildly depressed and displaced but radiographically I don't see any abrupt step-offs. Humphrey Davidson MD Objective Remarks GENERAL: Well-developed well-nourished. In no acute distress. SKIN: Warm and dry. No lesions noted. HEENT: Normocephalic. Pupils equal and round. Mucous membranes pink and moist. CARDIOVASCULAR: Regular rate and rhythm. No murmur appreciated. RESPIRATORY: No accessory muscle use. Clear to auscultation. Breath sounds equal bilaterally. GASTROINTESTINAL: Abdomen soft, non-tender, nondistended. Bowel sounds x4. MUSCULOSKELETAL: Right knee immobilizer with ice brace. No clubbing or cyanosis. No edema. NEUROLOGICAL: Awake and alert. No focal neurological deficits. Moves upper and lower extremities spontaneously. Normal speech. PSYCHIATRIC: Appropriate mood and affect; insight and judgment normal. Procedures none A/P Problem List: (1) Fall ICD Code: W19.XXXA Status: Acute (2) Tibial plateau fracture, right ICD Code: S82.141A Status: Acute (3) Hypokalemia ICD Code: E87.6 Status: Resolved Assessment and Plan 51-year-old female with no significant past medical history presented with right knee pain after a fall Right tibial plateau fracture s/p mechanical fall: Fracture seen on CT right knee. Orthopedics were consulted, appreciate input, recommended nonoperative management, NWB, maintain brace, rehabilitation placement. Continue PT. Case management consulted for rehabilitation placement. Pain control with [place] 10/ 325 as needed with a bowel regimen. [place] 5/325 prn daily with PT. DVT prophylaxis: Lovenox Plan of care discussed with Dr. Lugo Discharge Planning Discharge to SNF when arranged. Problem Qualifiers (1) Fall: Qualified Code: W19.XXXA - Fall, initial encounter (2) Tibial plateau fracture, right: Qualified Code: S82.141A - Tibial plateau fracture, right, closed, initial encounter Eulalio Galeano Aug 14, 2016 09:30 Jossy Lugo MD Aug 14, 2016 14:28
[2016-08-14] MEDS: ENOXAPARIN SODIUM 30 MG/0.3 ML SYRINGE SQ SCH (14:38)
[2016-08-14 17:07] VITALS: BP 107/57; PULSE 69; RESP 18; O2SAT 96
[2016-08-14 19:19] VITALS: BP 105/66; PULSE 84; RESP 19; TEMP 98; O2SAT 94
[2016-08-15 03:50] VITALS: BP 105/60; PULSE 82; RESP 19; TEMP 98.2; O2SAT 96
[2016-08-15 07:31] VITALS: BP 136/72; PULSE 62; RESP 17; TEMP 98.2; O2SAT 95
--- NOTE | 2016-08-15 08:19 | HHI.PR ---
Subjective Remarks Follow up for right knee fracture. Patient sleeping upon my arrival. Knee pain fairly well controlled with [place], however does have increased pain with ambulation attempts. She has no other medical complaints. Looking forward to rehab. Objective Vitals Vital Signs Date Time Temp Pulse Resp B/P Pulse Ox O2 Delivery O2 Flow Rate FiO2 08/15/16 07:31 98.2 62 17 136/72 95 08/15/16 03:50 98.2 82 19 105/60 96 08/14/16 19:19 98.0 84 19 105/66 94 08/14/16 17:07 69 18 107/57 96 08/14/16 08:35 98.3 63 17 146/69 96 I/O 08/14/16 08/14/16 08/14/16 08/15/16 08/15/16 08/15/16 07:00 15:00 23:00 07:00 15:00 23:00 Intake Total 480 ml 240 ml Balance 480 ml 240 ml Intake Oral 480 ml 240 ml # Voids 2 3 # Bowel Movements 0 0 Imaging Last Impressions Lower Extremity CT 08/06/16 0000 Signed Impressions: Service Date/Time: Saturday, August 06, 2016 06:58 - CONCLUSION: Depressed punch type tibial plateau fracture involving the significant amount of the articular cartilage. Subarticular cyst is noted centrally. Jamel Jarrett MD FACR Chest X-Ray 08/05/16 2334 Signed Impressions: Service Date/Time: August 23:50 - CONCLUSION: No acute cardiopulmonary abnormality is identified. Humphrey Armendariz MD Knee X-Ray 08/05/16 0000 Signed Impressions: Service Date/Time: August 22:22 - CONCLUSION: Medial and lateral tibial plateau fractures. The lateral tibial plateau fracture is mildly depressed and displaced but radiographically I don't see any abrupt step-offs. Humphrey Davidson MD Objective Remarks GENERAL: Well-nourished, well-developed pleasant middle aged female patient in [facility]. SKIN: Warm and dry. No rash. HEAD: Normocephalic. Atraumatic. NECK: Supple. Trachea midline. CARDIOVASCULAR: Regular rate and rhythm. S1, S2 noted. No murmur appreciated. RESPIRATORY: No accessory muscle use. Clear to auscultation. Breath sounds equal bilaterally. GASTROINTESTINAL: Abdomen soft, non-tender, nondistended. Normoactive bowel sounds x4. MUSCULOSKELETAL: No obvious deformities. Extremities without clubbing, cyanosis , or edema. Right knee immobilizer in place. 2+ b/l pedal pulses. NEUROLOGICAL: Awake and alert. No obvious cranial nerve deficits. Motor grossly within normal limits. Normal speech. PSYCHIATRIC: Appropriate mood and affect; insight and judgment normal. Procedures none Medications and IVs Current Medications Medications (Trade) Dose Ordered Sig/Lino Route Start Time Stop Time Status Last Admin (NS Flush) 2 ml UNSCH PRN FLUSH 08/05/16 23:45 (NS Flush) 2 ml BID FLUSH 08/06/16 09:00 08/14/16 20:27 (Zofran Inj) 4 mg Q6H PRN IVP 08/05/16 23:45 08/07/16 04:06 (Dulcolax Supp) 10 mg DAILY PRN MT 08/05/16 23:45 (Tylenol) 650 mg Q6H PRN PO 08/05/16 23:45 (Lovenox Inj) 30 mg Q24H SQ 08/06/16 15:00 08/14/16 14:38 ([place] 7.5-325 Mg) 1 tab Q4H PRN PO 08/06/16 13:45 08/10/16 15:52 ([place] 10-325 Mg) 1 tab Q4H PRN PO 08/06/16 13:45 08/14/16 22:53 (CeleXA) 20 mg DAILY PO 08/07/16 09:00 08/14/16 08:11 (Cozaar) 100 mg DAILY PO 08/07/16 09:00 08/14/16 08:11 (Topamax) 50 mg BID PO 08/07/16 09:00 08/14/16 20:27 (Effexor) 50 mg Q12HR PO 08/07/16 09:00 08/14/16 20:26 (Milk Of Magnesia Liq) 30 ml DAILY PRN PO 08/12/16 09:00 08/12/16 10:21 (Evy-Colace) 1 tab BID PO 08/13/16 21:00 08/14/16 08:11 ([place] 5-325 Mg) 1 tab DAILY PRN PO 08/14/16 09:30 Urinary Catheter: No Vascular Central Line Catheter: No A/P Problem List: (1) Fall ICD Code: W19.XXXA Status: Acute (2) Tibial plateau fracture, right ICD Code: S82.141A Status: Acute (3) Hypokalemia ICD Code: E87.6 Status: Resolved Assessment and Plan 51-year-old female with no significant past medical history presented with right knee pain after a fall Right tibial plateau fracture s/p mechanical fall: Fracture seen on CT right knee. Orthopedics were consulted, appreciate input, recommended nonoperative management, NWB, maintain brace, rehabilitation placement. Continue PT. Case management consulted for rehab placement. Pain control with [place] 10/325 as needed with bowel regimen. [place] 5/325 prn daily with PT. DVT prophylaxis: Lovenox Discussed with Dr. Lugo Discharge Planning Can d/c to SNF when arranged. Problem Qualifiers (1) Fall: Qualified Code: W19.XXXA - Fall, initial encounter (2) Tibial plateau fracture, right: Qualified Code: S82.141A - Tibial plateau fracture, right, closed, initial encounter Marely Fry PA-C Aug 15, 2016 08:19 Jossy Lugo MD Aug 15, 2016 17:41
[2016-08-15] MEDS: CITALOPRAM HYDROBROMIDE 20 MG TAB PO SCH (09:07)
[2016-08-15] MEDS: DOCUSATE SODIUM 50 MG/SENNA 8.6 MG TAB PO SCH ×2 (09:07→20:52)
[2016-08-15] MEDS: LOSARTAN 50 MG TAB PO SCH (09:07)
[2016-08-15] MEDS: VENLAFAXINE HCL 25 MG TAB PO SCH ×2 (09:07→20:52)
[2016-08-15] MEDS: TOPIRAMATE 25 MG TAB PO SCH ×2 (09:10→20:51)
[2016-08-15] MEDS: ACETAMINOPHEN/HYDROcodone 325 MG/10 MG TAB PO PRN ×3 (09:10→22:25)
[2016-08-15] MEDS: SODIUM CHLORIDE 0.9% FLUSH 5 ML FLUSH FLUSH SCH ×2 (09:11→20:52)
[2016-08-15 11:57] VITALS: BP 114/69; PULSE 65; RESP 17; TEMP 97.8; O2SAT 96
[2016-08-15] MEDS: ENOXAPARIN SODIUM 30 MG/0.3 ML SYRINGE SQ SCH (14:22)
[2016-08-15 20:10] VITALS: BP 124/86; PULSE 89; RESP 18; TEMP 98.2; O2SAT 97
[2016-08-15 23:06] VITALS: BP 120/71; PULSE 110; RESP 18; TEMP 98.2; O2SAT 96
[2016-08-16] MEDS: ACETAMINOPHEN/HYDROcodone 325 MG/10 MG TAB PO PRN ×5 (02:40→23:44)
[2016-08-16 04:37] VITALS: BP 128/77; PULSE 60; RESP 18; TEMP 98.2; O2SAT 96
[2016-08-16 08:08] VITALS: BP 168/85; PULSE 79; RESP 14; TEMP 97.8; O2SAT 100
[2016-08-16] MEDS: SODIUM CHLORIDE 0.9% FLUSH 5 ML FLUSH FLUSH SCH ×2 (09:00→20:21)
[2016-08-16] MEDS: VENLAFAXINE HCL 25 MG TAB PO SCH ×2 (09:00→20:21)
[2016-08-16] MEDS: DOCUSATE SODIUM 50 MG/SENNA 8.6 MG TAB PO SCH (09:00)
[2016-08-16] MEDS: LOSARTAN 50 MG TAB PO SCH (10:18)
[2016-08-16] MEDS: TOPIRAMATE 25 MG TAB PO SCH ×2 (10:19→20:20)
[2016-08-16] MEDS: CITALOPRAM HYDROBROMIDE 20 MG TAB PO SCH (10:19)
--- NOTE | 2016-08-16 11:08 | HHI.PR ---
Subjective Remarks Follow up for right knee fracture. The patient reports her knee pain is fairly well controlled with [place] 10mg. She is having normal BMs, twice a day, has been intermittently refusing Evy-Colace as she is worried her stools are getting too soft, discussed changing to Colace, patient agrees. She is tolerating oral intake. She is looking forward to rehab. She has no other medical complaints at this time. Objective Vitals Vital Signs Date Time Temp Pulse Resp B/P Pulse Ox O2 Delivery O2 Flow Rate FiO2 08/16/16 08:08 97.8 79 14 168/85 100 08/16/16 04:37 98.2 60 18 128/77 96 08/15/16 23:06 98.2 110 18 120/71 96 08/15/16 20:10 98.2 89 18 124/86 97 08/15/16 19:15 21 08/15/16 15:30 21 08/15/16 11:57 97.8 65 17 114/69 96 Imaging Last Impressions Lower Extremity CT 08/06/16 0000 Signed Impressions: Service Date/Time: Saturday, August 06, 2016 06:58 - CONCLUSION: Depressed punch type tibial plateau fracture involving the significant amount of the articular cartilage. Subarticular cyst is noted centrally. Jamel Jarrett MD FACR Chest X-Ray 08/05/16 2334 Signed Impressions: Service Date/Time: August 23:50 - CONCLUSION: No acute cardiopulmonary abnormality is identified. Humphrey Armendariz MD Knee X-Ray 08/05/16 0000 Signed Impressions: Service Date/Time: August 22:22 - CONCLUSION: Medial and lateral tibial plateau fractures. The lateral tibial plateau fracture is mildly depressed and displaced but radiographically I don't see any abrupt step-offs. Humphrey Davidson MD Objective Remarks GENERAL: Well-nourished, well-developed pleasant middle aged female patient in [facility]. SKIN: Warm and dry. No rash. HEAD: Normocephalic. Atraumatic. NECK: Supple. Trachea midline. CARDIOVASCULAR: Regular rate and rhythm. S1, S2 noted. No murmur appreciated. RESPIRATORY: No accessory muscle use. Clear to auscultation. Breath sounds equal bilaterally. GASTROINTESTINAL: Abdomen soft, non-tender, nondistended. Normoactive bowel sounds x4. MUSCULOSKELETAL: No obvious deformities. Extremities without clubbing, cyanosis , or edema. Right knee immobilizer in place. 2+ b/l pedal pulses. NEUROLOGICAL: Awake and alert. No obvious cranial nerve deficits. Motor grossly within normal limits. Normal speech. PSYCHIATRIC: Appropriate mood and affect; insight and judgment normal. Procedures none Medications and IVs Current Medications Medications (Trade) Dose Ordered Sig/Lino Route Start Time Stop Time Status Last Admin (NS Flush) 2 ml UNSCH PRN FLUSH 08/05/16 23:45 (NS Flush) 2 ml BID FLUSH 08/06/16 09:00 08/15/16 20:52 (Zofran Inj) 4 mg Q6H PRN IVP 08/05/16 23:45 08/07/16 04:06 (Dulcolax Supp) 10 mg DAILY PRN ID 08/05/16 23:45 (Tylenol) 650 mg Q6H PRN PO 08/05/16 23:45 (Lovenox Inj) 30 mg Q24H SQ 08/06/16 15:00 08/15/16 14:22 ([place] 7.5-325 Mg) 1 tab Q4H PRN PO 08/06/16 13:45 08/10/16 15:52 ([place] 10-325 Mg) 1 tab Q4H PRN PO 08/06/16 13:45 08/16/16 10:21 (CeleXA) 20 mg DAILY PO 08/07/16 09:00 08/16/16 10:19 (Cozaar) 100 mg DAILY PO 08/07/16 09:00 08/16/16 10:18 (Topamax) 50 mg BID PO 08/07/16 09:00 08/16/16 10:19 (Effexor) 50 mg Q12HR PO 08/07/16 09:00 08/15/16 09:07 (Milk Of Magnesia Liq) 30 ml DAILY PRN PO 08/12/16 09:00 08/12/16 10:21 (Evy-Colace) 1 tab BID PO 08/13/16 21:00 08/15/16 09:07 ([place] 5-325 Mg) 1 tab DAILY PRN PO 08/14/16 09:30 08/15/16 14:22 A/P Problem List: (1) Fall ICD Code: W19.XXXA Status: Acute (2) Tibial plateau fracture, right ICD Code: S82.141A Status: Acute (3) Hypokalemia ICD Code: E87.6 Status: Resolved Assessment and Plan 51-year-old female with no significant past medical history presented with right knee pain after a fall Right tibial plateau fracture s/p mechanical fall: Fracture seen on CT right knee. Orthopedics were consulted, appreciate input, recommended nonoperative management, NWB, maintain brace, rehabilitation placement. Continue PT. Case management consulted for rehab placement. Pain control with [place] 10/325 as needed with bowel regimen DVT prophylaxis: Lovenox Discussed with Dr. Lugo Discharge Planning Can d/c to SNF when arranged. See discharge summary. Problem Qualifiers (1) Fall: Qualified Code: W19.XXXA - Fall, initial encounter (2) Tibial plateau fracture, right: Qualified Code: S82.141A - Tibial plateau fracture, right, closed, initial encounter Marely Fry PA-C Aug 16, 2016 11:08 Jossy Lugo MD Aug 16, 2016 14:30
[2016-08-16] MEDS ORDERED: COLA100C3 PO (11:10)
[2016-08-16] MEDS ORDERED: HYDR-3366 PO (11:51)
[2016-08-16 11:53] VITALS: BP 116/69; PULSE 76; RESP 19; TEMP 98.1; O2SAT 94
[2016-08-16] MEDS: ENOXAPARIN SODIUM 30 MG/0.3 ML SYRINGE SQ SCH (14:45)
[2016-08-16 15:36] VITALS: BP 134/61; PULSE 78; RESP 18; TEMP 96.2; O2SAT 99
[2016-08-16] MEDS: DOCUSATE SODIUM 100 MG CAP PO SCH (20:21)
[2016-08-16 21:35] VITALS: BP 143/85; PULSE 79; RESP 18; TEMP 98.1; O2SAT 94
[2016-08-16 23:57] VITALS: BP 133/93; PULSE 74; RESP 18; TEMP 98.1; O2SAT 95
[2016-08-17 06:17] VITALS: BP 136/89; PULSE 53; RESP 18; TEMP 98.2; O2SAT 94
[2016-08-17 08:19] VITALS: BP 124/66; PULSE 72; RESP 21; TEMP 96.3; O2SAT 94
[2016-08-17] MEDS: SODIUM CHLORIDE 0.9% FLUSH 5 ML FLUSH FLUSH SCH ×2 (09:00→20:53)
[2016-08-17] MEDS: VENLAFAXINE HCL 25 MG TAB PO SCH ×2 (09:00→20:55)
[2016-08-17] MEDS: DOCUSATE SODIUM 100 MG CAP PO SCH ×2 (09:00→20:53)
--- NOTE | 2016-08-17 09:06 | HHI.PR ---
Subjective Remarks Follow-up for right knee fracture. The patient complains of occasional pain and fullness of her right ear. She uses D Brox at home for earwax. Normal bowel movements. She is concerned about ADLs at home in her current state, and would like to go to SNF. Objective Vitals Vital Signs Date Time Temp Pulse Resp B/P Pulse Ox O2 Delivery O2 Flow Rate FiO2 08/17/16 08:19 96.3 72 21 124/66 94 08/17/16 06:17 98.2 53 18 136/89 94 08/16/16 23:57 98.1 74 18 133/93 95 08/16/16 21:35 98.1 79 18 143/85 94 08/16/16 21:24 16 08/16/16 15:36 96.2 78 18 134/61 99 08/16/16 11:53 98.1 76 19 116/69 94 I/O 08/16/16 08/16/16 08/16/16 08/17/16 08/17/16 08/17/16 07:00 15:00 23:00 07:00 15:00 23:00 Intake Total 400 ml Balance 400 ml Intake Oral 400 ml Objective Remarks GENERAL: Well-developed well-nourished. In no acute distress. SKIN: Warm and dry. No lesions noted. HEENT: Normocephalic. Pupils equal and round. Mucous membranes pink and moist. External auditory canals with significant cerumen bilaterally, but no cerumen impaction; TMs partially visualized, appear intact. CARDIOVASCULAR: Regular rate and rhythm. No murmur appreciated. RESPIRATORY: No accessory muscle use. Clear to auscultation. Breath sounds equal bilaterally. GASTROINTESTINAL: Abdomen soft, non-tender, nondistended. Bowel sounds x4. MUSCULOSKELETAL: Right knee immobilizer with ice brace. No clubbing or cyanosis. No edema. NEUROLOGICAL: Awake and alert. No focal neurological deficits. Moves upper and lower extremities spontaneously. Normal speech. PSYCHIATRIC: Appropriate mood and affect; insight and judgment normal. Procedures none A/P Problem List: (1) Fall ICD Code: W19.XXXA Status: Acute (2) Tibial plateau fracture, right ICD Code: S82.141A Status: Acute (3) Hypokalemia ICD Code: E87.6 Status: Resolved Assessment and Plan 51-year-old female with no significant past medical history presented with right knee pain after a fall Right tibial plateau fracture s/p mechanical fall: Fracture seen on CT right knee. Orthopedics were consulted, appreciate input, recommended nonoperative management, NWB, maintain brace, rehabilitation placement. Continue PT. Case management consulted for rehabilitation placement. Pain control with [place] 10/ 325 as needed with a bowel regimen. [place] 5/325 prn daily with PT. Patient concerned about ADLs, add OT. Increased cerumen: Patient can continue Debrox. Outpatient ENT follow-up recommended. DVT prophylaxis: Lovenox Plan of care discussed with Dr. Weiss Discharge Planning Discharge to SNF when arranged. Problem Qualifiers (1) Fall: Qualified Code: W19.XXXA - Fall, initial encounter (2) Tibial plateau fracture, right: Qualified Code: S82.141A - Tibial plateau fracture, right, closed, initial encounter Eulalio Galeano Aug 17, 2016 9:06 am Dylan Weiss DO Aug 17, 2016 4:43 pm
[2016-08-17] MEDS: CITALOPRAM HYDROBROMIDE 20 MG TAB PO SCH (09:54)
[2016-08-17] MEDS: ACETAMINOPHEN/HYDROcodone 325 MG/10 MG TAB PO PRN ×3 (09:54→20:55)
[2016-08-17] MEDS: TOPIRAMATE 25 MG TAB PO SCH ×2 (09:55→20:54)
[2016-08-17] MEDS: LOSARTAN 50 MG TAB PO SCH (09:55)
[2016-08-17 11:58] VITALS: BP 138/84; PULSE 87; RESP 22; TEMP 97.9; O2SAT 96
[2016-08-17] MEDS: ENOXAPARIN SODIUM 30 MG/0.3 ML SYRINGE SQ SCH (14:35)
[2016-08-17 15:40] VITALS: BP 134/79; PULSE 77; RESP 20; TEMP 98.7; O2SAT 97
[2016-08-17 19:07] VITALS: BP 160/88; PULSE 86; RESP 18; TEMP 97.2; O2SAT 94
[2016-08-18 00:58] VITALS: BP 168/92; PULSE 72; RESP 18; TEMP 98.2; O2SAT 95
[2016-08-18] MEDS: ACETAMINOPHEN/HYDROcodone 325 MG/10 MG TAB PO PRN ×4 (01:27→17:29)
[2016-08-18 06:04] VITALS: BP 138/82; PULSE 61; RESP 18; TEMP 98.4; O2SAT 95
[2016-08-18 08:24] VITALS: BP 139/73; PULSE 74; RESP 18; TEMP 97.9; O2SAT 97
--- NOTE | 2016-08-18 08:44 | PD.ORT.PN ---
Subjective Subjective Remarks s/p right tibial plateau fracture doing better. pain improving. out of bed on own with walker. doing well. case management has gotten approval for rehab placement Objective Vitals Vital Signs Date Time Temp Pulse Resp B/P Pulse Ox O2 Delivery O2 Flow Rate FiO2 08/18/16 08:24 97.9 74 18 139/73 97 08/18/16 06:04 98.4 61 18 138/82 95 08/18/16 02:30 19 08/18/16 00:58 98.2 72 18 168/92 95 08/17/16 19:07 97.2 86 18 160/88 94 08/17/16 15:40 98.7 77 20 134/79 97 08/17/16 11:58 97.9 87 22 138/84 96 Imaging Last 24 hours Impressions Lower Extremity CT 08/06/16 0000 Signed Impressions: Service Date/Time: Saturday, August 06, 2016 06:58 - CONCLUSION: Depressed punch type tibial plateau fracture involving the significant amount of the articular cartilage. Subarticular cyst is noted centrally. Jamel Jarrett MD FACR Chest X-Ray 08/05/16 2334 Signed Impressions: Service Date/Time: August 23:50 - CONCLUSION: No acute cardiopulmonary abnormality is identified. Humphrey Armendariz MD Objective Remarks RLE: + knee brace. + ice cuff. NVI distally. compartments soft Assessment & Plan Assessment and Plan 1) Right Tibial Plateau Fx -nonop -NWB -maintain brace -recmomend DC to rehab -f/u with [facility] or [facility] in 1 week -ortho cleared for DC to rehab Luis Kelley Aug 18, 2016 08:44
[2016-08-18] MEDS: LOSARTAN 50 MG TAB PO SCH (08:49)
[2016-08-18] MEDS: CITALOPRAM HYDROBROMIDE 20 MG TAB PO SCH (08:49)
[2016-08-18] MEDS: DOCUSATE SODIUM 100 MG CAP PO SCH (08:49)
[2016-08-18] MEDS: TOPIRAMATE 25 MG TAB PO SCH (08:49)
[2016-08-18] MEDS: SODIUM CHLORIDE 0.9% FLUSH 5 ML FLUSH FLUSH SCH (08:51)
[2016-08-18] MEDS: VENLAFAXINE HCL 25 MG TAB PO SCH (08:55)
--- NOTE | 2016-08-18 09:40 | HHI.PR ---
Subjective Remarks Follow-up for right knee fracture. The patient has no acute complaints today. She was accepted at SNF, and is happy to go. Objective Vitals Vital Signs Date Time Temp Pulse Resp B/P Pulse Ox O2 Delivery O2 Flow Rate FiO2 08/18/16 08:24 97.9 74 18 139/73 97 08/18/16 06:04 98.4 61 18 138/82 95 08/18/16 02:30 19 08/18/16 00:58 98.2 72 18 168/92 95 08/17/16 19:07 97.2 86 18 160/88 94 08/17/16 15:40 98.7 77 20 134/79 97 08/17/16 11:58 97.9 87 22 138/84 96 Imaging Last Impressions Lower Extremity CT 08/06/16 0000 Signed Impressions: Service Date/Time: Saturday, August 06, 2016 06:58 - CONCLUSION: Depressed punch type tibial plateau fracture involving the significant amount of the articular cartilage. Subarticular cyst is noted centrally. Jamel Jarrett MD FACR Chest X-Ray 08/05/16 2334 Signed Impressions: Service Date/Time: August 23:50 - CONCLUSION: No acute cardiopulmonary abnormality is identified. Humphrey Armendariz MD Knee X-Ray 08/05/16 0000 Signed Impressions: Service Date/Time: August 22:22 - CONCLUSION: Medial and lateral tibial plateau fractures. The lateral tibial plateau fracture is mildly depressed and displaced but radiographically I don't see any abrupt step-offs. Humphrey Davidson MD Objective Remarks GENERAL: Well-developed well-nourished. In no acute distress. SKIN: Warm and dry. No lesions noted. HEENT: Normocephalic. Pupils equal and round. Mucous membranes pink and moist. CARDIOVASCULAR: Regular rate and rhythm. No murmur appreciated. RESPIRATORY: No accessory muscle use. Clear to auscultation. Breath sounds equal bilaterally. GASTROINTESTINAL: Abdomen soft, non-tender, nondistended. Bowel sounds x4. MUSCULOSKELETAL: Right knee immobilizer with ice brace. No clubbing or cyanosis. No edema. NEUROLOGICAL: Awake and alert. No focal neurological deficits. Moves upper and lower extremities spontaneously. Normal speech. PSYCHIATRIC: Appropriate mood and affect; insight and judgment normal. Procedures none A/P Problem List: (1) Fall ICD Code: W19.XXXA Status: Acute (2) Tibial plateau fracture, right ICD Code: S82.141A Status: Acute (3) Hypokalemia ICD Code: E87.6 Status: Resolved Assessment and Plan 51-year-old female with no significant past medical history presented with right knee pain after a fall Right tibial plateau fracture s/p mechanical fall: Fracture seen on CT right knee. Orthopedics were consulted, appreciate input, recommended nonoperative management, NWB, maintain brace, rehabilitation placement. Continue PT/OT. Case management consulted for rehabilitation placement. Pain control with [place] 10/325 as needed with a bowel regimen. DVT prophylaxis: Lovenox Discharge Planning Discharge to SNF today. Problem Qualifiers (1) Fall: Qualified Code: W19.XXXA - Fall, initial encounter (2) Tibial plateau fracture, right: Qualified Code: S82.141A - Tibial plateau fracture, right, closed, initial encounter Eulalio Galeano Aug 18, 2016 09:40 Dylan Weiss DO Aug 18, 2016 20:19
[2016-08-18 11:27] VITALS: BP 139/76; PULSE 97; RESP 20; TEMP 98; O2SAT 94
--- NOTE | 2016-08-18 12:20 | HHI.DS ---
Discharge Summary Admission Date Aug 05, 2016 at 11:43 pm Discharge Date: Aug 18, 2016 Admitting Diagnosis (1) Fall ICD Code: W19.XXXA (2) Tibial plateau fracture, right ICD Code: S82.141A Diagnosis: Principal (3) Hypokalemia ICD Code: E87.6 Procedures none Brief History - From Admission This a 51-year-old female with no significant PMH who was brought to the ER by EMS secondary to complaints of right knee pain. 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 Had presented to [facility] w/ complaints of right knee pain, had X-rays showing right knee fracture, was place in immobilizer and given instructions to follow up w/ Ortho as outpatient. When pt returned home she states she was unable to get up the stairs to her apartment due to the pain. On arrival, BP 127/62, HR 77, O2 sat 98% on RA, Afebrile. K+ 3.4. CXR w/ no acute findings. Knee X-ray w/ medial and lateral tibial plateau fractures. Dr. Irby consulted by ER physician, plan for surgical intervention. Imaging Last Impressions Lower Extremity CT 08/06/16 0000 Signed Impressions: Service Date/Time: Saturday, August 06, 2016 06:58 - CONCLUSION: Depressed punch type tibial plateau fracture involving the significant amount of the articular cartilage. Subarticular cyst is noted centrally. Jamel Jarrett MD FACR Chest X-Ray 08/05/16 2334 Signed Impressions: Service Date/Time: August 23:50 - CONCLUSION: No acute cardiopulmonary abnormality is identified. Humphrey Armendariz MD Knee X-Ray 08/05/16 0000 Signed Impressions: Service Date/Time: August 22:22 - CONCLUSION: Medial and lateral tibial plateau fractures. The lateral tibial plateau fracture is mildly depressed and displaced but radiographically I don't see any abrupt step-offs. Humphrey Davidson MD PE at Discharge GENERAL: Well-developed well-nourished. In no acute distress. SKIN: Warm and dry. No lesions noted. HEENT: Normocephalic. Pupils equal and round. Mucous membranes pink and moist. CARDIOVASCULAR: Regular rate and rhythm. No murmur appreciated. RESPIRATORY: No accessory muscle use. Clear to auscultation. Breath sounds equal bilaterally. GASTROINTESTINAL: Abdomen soft, non-tender, nondistended. Bowel sounds x4. MUSCULOSKELETAL: Right knee immobilizer with ice brace. No clubbing or cyanosis. No edema. NEUROLOGICAL: Awake and alert. No focal neurological deficits. Moves upper and lower extremities spontaneously. Normal speech. PSYCHIATRIC: Appropriate mood and affect; insight and judgment normal. Pt update on day of discharge Ms. Arredondo is doing well. Denies any acute concerns. No fever, chills. She is going to [facility] in [place], [place]. Hospital Course Ms. Arredondo a 51-year-old female with no significant PMH who was brought to the ER by EMS secondary to complaints of right knee pain. On arrival, BP 127/62, HR 77, O2 sat 98% on RA, Afebrile. K+ 3.4. CXR w/ no acute findings. Knee X-ray w/ medial and lateral tibial plateau fractures. Right tibial plateau fracture s/p mechanical fall: Fracture seen on CT right knee. Orthopedics were consulted and recommended nonoperative management, NWB, maintain brace, rehabilitation placement. Continue PT/OT. After arranging SNF, patient was discharged on 08/18/2016. Pt Condition on Discharge: Fair Discharge Disposition: Discharge to SNF Discharge Time: <= 30 minutes Discharge Instructions DIET: Follow Instructions for: Heart Healthy Diet Activities you can perform: Regular-No Restrictions, Non Weight Bearing Follow up Referrals: Orthopedics - 1 Week @ [facility] with Hemant Mera MD PCP Follow-up New Medications: Docusate Sodium (Colace) 100 Mg Cap 100 MG PO BID Constipation #60 Ref 0 CAP Hydrocodone-Acetaminophen ([place]) 10-325 Mg Tab 1 TAB PO Q4H PRN PAIN #20 Ref 0 TAB Walker/Adult/Folding (Walker/Adult/Folding) 1 Mis Mis 1 EA .ROUTE DIRECTED #1 Ref 0 EA Wheelchair Elevated Leg (Wheelchair Elevated Leg) 1 Mis Mis 1 EA .ROUTE DIRECTED #1 Ref 0 EA Continued Medications: Citalopram (Citalopram) 20 Mg Tab 20 MG PO DAILY Control Depression #0 Ref 0 TAB Losartan (Losartan) 100 Mg Tab 100 MG PO DAILY Blood Pressure Management #0 Ref 0 TAB Phentermine (Adipex-P) 37.5 Mg Tab 37.5 MG PO DAILY Weight Management #9 Ref 0 TAB Topiramate (Topiramate) 50 Mg Tab 50 MG PO BID Control Seizures #0 Ref 0 TAB Venlafaxine (Effexor) 50 Mg Tab 50 MG PO Q12H #0 Ref 0 TAB Discontinued Medications: Diltiazem ER 24 HR (Cartia Xt) 240 Mg Caper 240 MG PO DAILY #0 Ref 0 CAP Oxycodone-Acetaminophen (Oxycodone-Acetaminophen) 5-325 mg Tab 1-2 TAB PO Q6H PRN PAIN Ref 0 TAB Dylan Weiss DO Aug 18, 2016 12:20
[2016-08-18] MEDS: ENOXAPARIN SODIUM 30 MG/0.3 ML SYRINGE SQ SCH (15:04)
== END 2016-08-18 20:03 | disposition home or self-care (01) ==
LOC: NEPA 20:02 → NEDA 23:43 → INTOOBSV 23:43 → NEDH 08-06 06:34 → NEPFCDU 08-06 19:03 → NEPHCDU 08-13 23:46
PROVIDERS: ADMIT Hospitalist; ATTEND Hospitalist
DX: S82.141A Displaced bicondylar fracture of right tibia, initial encounter for closed fracture (principal); E87.6 Hypokalemia; W10.8XXA Fall (on) (from) other stairs and steps, initial encounter; Y93.K1 Activity, walking an animal; Y92.038 Other place in apartment as the place of occurrence of the external cause
CPT/HCPCS: 71010; 73564; 73700; 80053; 83735; 85007; 85025; 85027; 85610; 85730; 93005; 97110; 97116; 97162; 97166; 97530; 99284; G0378; G8987; G8988; J1650; J1885; J2270; J2405; J7030; L1830

== ENCOUNTER 2018-03-22 09:52 | Observation (INO) ==
[2018-03-22] MEDS ORDERED: Morphine Sulfate Inj 2 MG/ML Vial IV.PUSH ONE (11:07)
[2018-03-22] MEDS ORDERED: Pantoprazole Inj 40 MG Vial IV.PUSH ONE (11:07)
--- NOTE | 2018-03-22 11:18 | ED ---
HPI General Chief complaint: GI Bleed Stated complaint: mid abd pain blood during bathroom use Time Seen by Provider: 03/22/18 10:57 Source: patient Mode of arrival: ambulatory Limitations: no limitations History of Present Illness HPI Narrative: 53-year-old female complains of abdominal pain and rectal bleed. Patient states that the symptoms started yesterday. Patient stated the pain and cramping pain intermittent pain diffuse over the abdomen. Patient denies any pain radiation. Patient denies any dysuria frequency. Patient denies any vaginal discharge or bleeding. Patient denies any fever chills. Patient denies any pain radiation. Patient has history GI bleed in the past. Patient states that she was admitted to [facility] in [facility] 2 years ago for GI bleed. Patient states that she had endoscopy done at that time. Patient does not know the source of bleeding. Patient has history hypertension and depression. Patient is not on any aspirin or NSAIDs recently. Patient states that she has nausea but no vomiting or diarrhea. Patient denies history of alcohol abuse. complaint: gross hematochezia Onset (ago): day(s) Pain Consistency: intermittent Severity: moderate Relieving factors: none Exacerbating factors: none Context: history of GI bleed Associated symptoms: nausea Treatments Prior to Arrival: none Related Data Home Medications Medication Instructions Recorded Confirmed bupropion HCl [Wellbutrin XL] 150 mg PO QAM 03/22/18 03/22/18 citalopram 20 mg PO DAILY 03/22/18 03/22/18 diltiazem HCl [Cardizem CD] 120 mg PO DAILY 03/22/18 03/22/18 losartan 100 mg PO DAILY 03/22/18 03/22/18 Allergies Allergy/AdvReac Type Severity Reaction Status Date / Time No Known Allergies Allergy Verified 03/22/18 10:42 Review of Systems ROS: all other systems reviewed are negative [facility] Medical History Medical History Depression (Acute) Hypertension (Acute) Surgical History Surgical History Hx of appendectomy (Acute) Social History Social History Substance History: No History of Abuse Smoking Status: Former smoker How Often Do You Have a Drink Containing Alcohol: Never Immunization History Tetanus Immunization: Unsure Hx Influenza Vaccine This Season: Yes Exam Narrative Exam Narrative: GENERAL: Well-nourished, well-developed patient. SKIN: Focused skin assessment warm/dry. HEAD: Normocephalic. EYES: No scleral icterus. No injection or drainage. NECK: Supple, trachea midline. No JVD or lymphadenopathy. CARDIOVASCULAR: Regular rate and rhythm without murmurs, gallops, or rubs. RESPIRATORY: Breath sounds equal bilaterally. No accessory muscle use. GASTROINTESTINAL: Abdomen soft, nondistended. Patient has moderate tenderness on palpation of the epigastric of the abdomen. Mild diffuse tenderness to the rest of the abdomen. Rectal exam Hemoccult positive. MUSCULOSKELETAL: No cyanosis, or edema. BACK: Nontender without obvious deformity. No CVA tenderness. Neurologic exam normal. Course Initial Documented Vital Signs Temperature 98.1 F 03/22/18 09:54 Pulse Rate 96 H 03/22/18 09:54 Respiratory Rate 19 03/22/18 09:54 Blood Pressure 116/81 03/22/18 09:54 Pulse Oximetry 97 03/22/18 09:54 Last Documented Vital Signs Temperature 98.1 F 03/22/18 09:54 Pulse Rate 65 03/22/18 11:07 Respiratory Rate 16 03/22/18 11:07 Blood Pressure 119/70 03/22/18 11:07 Pulse Oximetry 97 03/22/18 11:07 Medical Decision Making MDM Narrative Medical decision making narrative: 53-year-old female with abdominal pain and rectal bleed. Normal saline solution 1 25 cc an hour. Protonix 40 mg IV. Zofran 4 mg IV. Morphine 2 mg IV. Type and screen. Levaquin 750 mg IV given. Flagyl 500 mg IV given. Medical Screen Exam Complete: Yes Emergency Medical Condition: Yes Lab Data Lab results reviewed: Yes I reviewed the patient's lab results. Result diagrams: 03/22/18 11:34 03/22/18 11:34 Lab Results 03/22/18 03/22/18 03/22/18 Range/Units 11:34 11:34 11:34 CBC w Diff Auto diff final WBC 9.3 (4.0-11.0) th/mm3 RBC 4.18 (4.00-5.30) mil/mm3 Hgb 13.7 (11.6-15.3) gm/dL Hct 39.8 (35.0-46.0) % MCV 95.1 (80.0-100.0) fL MCH 32.7 (27.0-34.0) pg MCHC 34.3 (32.0-36.0) % RDW 13.7 (11.6-17.2) % Plt Count 189 (150-450) th/mm3 MPV 9.2 (7.0-11.0) fL Neut % (Auto) 85.3 H (16.0-70.0) % Lymph % (Auto) 11.0 (9.0-44.0) % Snyder % (Auto) 2.7 (0.0-8.0) % Eos % (Auto) 0.6 (0.0-4.0) % Baso % (Auto) 0.4 (0.0-2.0) % Neut # (Auto) 7.9 H (1.8-7.7) th/mm3 Lymph # (Auto) 1.0 (1.0-4.8) th/mm3 Snyder # (Auto) 0.3 (0.0-0.9) th/mm3 Eos # (Auto) 0.1 (0.0-0.4) th/mm3 Baso # (Auto) 0.0 (0.0-0.2) th/mm3 WBC Differential . Differential Comment . PT 10.3 (9.8-11.6) sec INR 1.0 Ratio APTT 26.9 (24.3-30.1) sec Sodium 139 (136-145) meq/L Potassium 4.2 (3.5-5.1) meq/L Chloride 106 (98-107) meq/L Carbon Dioxide 25.6 (21.0-32.0) meq/L Anion Gap 7 (5-15) meq/L BUN 17 (7-18) mg/dL Creatinine 0.73 (0.50-1.00) mg/dL Estimated GFR 83 L (>89) mL/min Random Glucose 104 (74-106) mg/dL Calcium 8.9 (8.5-10.1) mg/dL Total Bilirubin 0.6 (0.2-1.0) mg/dL AST 14 L (15-37) U/L ALT 21 (10-53) U/L Alkaline Phosphatase 74 (45-117) U/L Total Protein 7.4 (6.4-8.2) g/dL Albumin 3.8 (3.4-5.0) g/dL Lipase 71 L (73-393) U/L Ur Collection Type Urine Color (Yellw/Straw) Urine Clarity (Clear) Urine pH (5.0-8.5) Ur Specific [place] (1.002-1.035) Urine Protein (Neg-Trace) mg/dL Urine Glucose (UA) (Negative) mg/dL Urine Ketones (Negative) mg/dL Urine Occult Blood (Negative) Urine Nitrate (Negative) Urine Bilirubin (Negative) Urine Urobilinogen (Less than 2) mg/dL Ur Leukocyte Esterase (Negative) Urine WBC (0-5) /hpf Ur Squamous Epith Cells (0-5) /hpf Urine Bacteria (None) /hpf Micro UA Comment Ur Microscopic Review Urine Culture Comments 03/22/18 Range/Units 11:47 CBC w Diff WBC (4.0-11.0) th/mm3 RBC (4.00-5.30) mil/mm3 Hgb (11.6-15.3) gm/dL Hct (35.0-46.0) % MCV (80.0-100.0) fL MCH (27.0-34.0) pg MCHC (32.0-36.0) % RDW (11.6-17.2) % Plt Count (150-450) th/mm3 MPV (7.0-11.0) fL Neut % (Auto) (16.0-70.0) % Lymph % (Auto) (9.0-44.0) % Snyder % (Auto) (0.0-8.0) % Eos % (Auto) (0.0-4.0) % Baso % (Auto) (0.0-2.0) % Neut # (Auto) (1.8-7.7) th/mm3 Lymph # (Auto) (1.0-4.8) th/mm3 Snyder # (Auto) (0.0-0.9) th/mm3 Eos # (Auto) (0.0-0.4) th/mm3 Baso # (Auto) (0.0-0.2) th/mm3 WBC Differential Differential Comment PT (9.8-11.6) sec INR Ratio APTT (24.3-30.1) sec Sodium (136-145) meq/L Potassium (3.5-5.1) meq/L Chloride (98-107) meq/L Carbon Dioxide (21.0-32.0) meq/L Anion Gap (5-15) meq/L BUN (7-18) mg/dL Creatinine (0.50-1.00) mg/dL Estimated GFR (>89) mL/min Random Glucose (74-106) mg/dL Calcium (8.5-10.1) mg/dL Total Bilirubin (0.2-1.0) mg/dL AST (15-37) U/L ALT (10-53) U/L Alkaline Phosphatase (45-117) U/L Total Protein (6.4-8.2) g/dL Albumin (3.4-5.0) g/dL Lipase (73-393) U/L Ur Collection Type Clean catch Urine Color Yellow (Yellw/Straw) Urine Clarity Clear (Clear) Urine pH 6.0 (5.0-8.5) Ur Specific [place] 1.020 (1.002-1.035) Urine Protein Negative (Neg-Trace) mg/dL Urine Glucose (UA) Negative (Negative) mg/dL Urine Ketones Negative (Negative) mg/dL Urine Occult Blood Moderate H (Negative) Urine Nitrate Positive H (Negative) Urine Bilirubin Negative (Negative) Urine Urobilinogen 0.2 (Less than 2) mg/dL Ur Leukocyte Esterase Negative (Negative) Urine WBC 6-8 H (0-5) /hpf Ur Squamous Epith Cells 6-10 H (0-5) /hpf Urine Bacteria Many H (None) /hpf Micro UA Comment Culture indicated Ur Microscopic Review Microscopic reviewed Urine Culture Comments Culture indicated Imaging Data Attestation: I personally reviewed and interpreted this imaging study as follows : Radiologist's impression: Abdomen/Pelvis CT 03/22/18 11:07 CONCLUSION: 1. The only questionable area is some questionable thickened transverse colon could just be a decompressed segment. Otherwise normal exam. Discharge Plan Discharge Disposition Patient Disposition: 30 Still Patient Discharge Details Diagnosis: Acute GI bleeding, Colitis, UTI (urinary tract infection) Physicians Team ED Provider: Christian Grubbs Primary Care Provider: Primary Care Physici,No Rxs /Orders / Referrals /Forms Prescriptions: No Action citalopram 20 mg Tablet 20 mg PO DAILY RF: 0 diltiazem HCl [Cardizem CD] 120 mg Capsule,Extended Release 24hr 120 mg PO DAILY RF: 0 bupropion HCl [Wellbutrin XL] 150 mg Tablet Extended Release 24 Hr 150 mg PO QAM RF: 0 losartan 100 mg PO DAILY RF: 0 Discharge Interventions Interventions: Vital Signs Last Done: 03/22/18 11:07 Status ED Status: With Doctor
[2018-03-22] MEDS: Sod Chloride 0.9% Inj 1,000 ML IV.CONT SCH ×2 (11:47→21:02)
[2018-03-22 12:08] LABS: Baso % (Auto) 0.4 % (0.0-2.0); Eos # (Auto) 0.1 th/mm3 (0.0-0.4); Eos % (Auto) 0.6 % (0.0-4.0); Hematocrit 39.8 % (35.0-46.0); Hemoglobin 13.7 gm/dL (11.6-15.3); Mean Corpuscular HGB Conc 34.3 % (32.0-36.0); Mean Corpuscular Hemoglobin 32.7 pg (27.0-34.0); Mean Corpuscular Volume 95.1 fL (80.0-100.0); Mean Platelet Volume 9.2 fL (7.0-11.0); Mono # (Auto) 0.3 th/mm3 (0.0-0.9); Mono % (Auto) 2.7 % (0.0-8.0); Neut # (Auto) 7.9 th/mm3 (1.8-7.7); Neut % (Auto) 85.3 % (16.0-70.0); Platelet Count 189 th/mm3 (150-450); Red Blood Count 4.18 mil/mm3 (4.00-5.30); Red Cell Distribution Width 13.7 % (11.6-17.2); White Blood Count 9.3 th/mm3 (4.0-11.0)
[2018-03-22 12:09] LABS: Bilirubin,Urine Negative (Negative); Clarity,Urine Clear (Clear); Color,Urine Yellow (Yellw/Straw); Glucose,Urine (UA) Negative (Negative); Leukocyte Esterase,Urine Negative (Negative); Nitrite,Urine Positive (Negative); Urobilinogen,Urine 0.2 mg/dL (Less than 2)
[2018-03-22 12:13] LABS: Chloride 106 meq/L (98-107); Potassium 4.2 meq/L (3.5-5.1); Sodium 139 meq/L (136-145)
[2018-03-22 12:16] LABS: Calcium 8.9 mg/dL (8.5-10.1)
[2018-03-22 12:16] LABS: Bacteria,Urine Many /hpf
[2018-03-22 12:17] LABS: Albumin 3.8 g/dL (3.4-5.0); Anion Gap 7 meq/L (5-15); Blood Urea Nitrogen 17 mg/dL (7-18); Carbon Dioxide 25.6 meq/L (21.0-32.0); Glucose,Random 104 mg/dL (74-106); Lipase 71 U/L (73-393)
[2018-03-22 12:19] LABS: Activated Partial Thrombo Time 26.9 sec (24.3-30.1); Prothrombin Time 10.3 sec (9.8-11.6)
[2018-03-22 12:20] LABS: Alanine Aminotransferase 21 U/L (10-53); Aspartate Aminotransferase 14 U/L (15-37); Glomerular Filtration Rate 83 mL/min (>89)
--- NOTE | 2018-03-22 12:20 | CT ---
EXAM DATE: 03/22/2018 12:12 PM EDT AGE/SEX: 53 years / Female INDICATIONS: Mid abdominal pain with rectal bleeding for one day. CLINICAL DATA: This is the patient's initial encounter. Patient reports that signs and symptoms have been present for 1 day and indicates a pain score of 5/10. MEDICAL/SURGICAL HISTORY: Hypertension. Appendectomy. RADIATION DOSE: 19.06 CTDI (mGy) COMPARISON: No prior exams available for comparison. TECHNIQUE: Multiple contiguous axial images were obtained through the abdomen. Images were obtained using multiple row detector helical technique. Using automated exposure control and adjustment of the mA and/or kV according to patient size, radiation dose was kept as low as reasonably achievable to o btain optimal diagnostic quality images. DICOM format image data is available electronically for rev iew and comparison. FINDINGS: Prominent right epicardial fat pad including a fatty containing hernia in the anterior epig astrium Lower Lungs: The visualized lower lungs are clear. Liver: The liver has a homogeneous density without space-occupying lesion. There is no dilation of th e biliary tree. Spleen: Homogeneous density without enlargement. Pancreas: Unremarkable without mass or calcification. Kidneys: Normal in size and shape. No evidence of mass or hydronephrosis. Adrenal Glands: Unremarkable. Aorta: The aorta and proximal iliac vessels are grossly unremarkable without aneurysmal dilation. Bowel/Mesentery: There is a short segment of questionable inflamed mid transverse colon directly in t he midline. The mesentery is mildly indurated raise the possibility of low-grade inflammation versus just a decompressed segment of transverse colon. The bowel loops are grossly unremarkable. The cecum and sigmoid colon have a normal configuration. Abdominal Wall: Intact. Retroperitoneum: No evidence of adenopathy in the retrocrural, para-aortic, or deep pelvic regions. Bladder: Contours are smooth. Reproductive Organs: No abnormal masses or calcifications seen. Inguinal: The inguinal region is unremarkable without evidence of adenopathy. Bony Structures: Unremarkable. CONCLUSION: 1. The only questionable area is some questionable thickened transverse colon could just be a decom pressed segment. Otherwise normal exam. Electronically signed by: Carlos Hughes MD 03/22/2018 12:18 PM EDT
[2018-03-22 12:21] LABS: Total Protein 7.4 g/dL (6.4-8.2)
[2018-03-22 12:23] LABS: Alkaline Phosphatase 74 U/L (45-117)
[2018-03-22] MEDS ORDERED: Morphine Inj 4 MG/ML Vial IV.PUSH ONE (12:41)
[2018-03-22] MEDS ORDERED: Morphine Sulfate Inj 2 MG/ML Vial IV.PUSH PRN (14:40)
[2018-03-22] MEDS ORDERED: Morphine Inj 4 MG/ML Vial IV.PUSH PRN (14:41)
[2018-03-22] MEDS: buPROPion 150 MG 12 HR Tablet PO SCH (15:06)
--- NOTE | 2018-03-22 15:26 | P.HP ---
History of Present Illness Primary Care Physician: No Primary Care Physician Chief Complaint: Abdominal pain History of Present Illness: This is a pleasant 53-year-old female patient with a known medical history of hypertension and depression who presented to the ED with complaints of abdominal pain as well as bloody stools. Patient states that yesterday she developed a abdominal discomfort that was diffusely present in her abdomen, pain was characteristically cramping in nature, intermittent, pain would be worse with any activity. Patient states that the pain is a 10 out of 10 at its worst on pain scale. She states that she took some Tylenol at home which did not relieve the pain. She also states that she noticed some bleeding last evening in her bowels. She denies any recent NSAID use. She does not have hemorrhoids. Patient denies any recent fevers, chills, headache, shortness of breath, vomiting or dysuria. She does admit to nausea and poor appetite for 3 days now. She also does admit to intermittent bloody diarrhea. Her last bowel movement was this morning. She states that the IV morphine given in ED did help her pain although was only short-lived. Upon assessment, patient is in apparent distress, states that the morphine IV given roughly an hour ago has worn off. She does state that she had a previous EGD roughly [address] [facility], at that time she did have a GI bleed diagnosis, states that she believes they cauterize something in her stomach. She required 6 units of PRBC transfusion. Since that time she has been doing relatively well. 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 Her PCP was last seen a month ago , denies any changes to her medicines. She does admit to history of hysterectomy and appendectomy. Denies ever having a colonoscopy in the past. Denies any tobacco abuse, alcohol or drug use. - Diagnosis (1) Acute GI bleeding (2) Colitis (3) UTI (urinary tract infection) Review of Systems All other systems reviewed negative except as stated in HPI PMFSH - History History Provided By: Patient - Medical History Medical History: Medical History (Last Updated 03/22/18 @ 16:29 by Stephie Callahan) Depression H/O: hysterectomy History of GI bleed Hypertension - Surgical History Surgical History: Surgical History (Last Reviewed 03/22/18 @ 11:16 by Christian Grubbs MD) Hx of appendectomy - Family History Family History: Family History (Last Updated 03/22/18 @ 16:29 by Stephie Callahan) Other No pertinent family history - Tobacco History Second Hand Smoke Exposure: No Tobacco Use In Past 30 Days: No Smoking Status: Former smoker - Alcohol History How Often Do You Have a Drink Containing Alcohol: Never - Substance Use History Substance History: No History of Abuse - Immunization History Tetanus Immunization: Unsure Hx Influenza Vaccine This Season: Yes Medications and Allergies Active Medications: Active Medications Bupropion HCl (Wellbutrin Sr) 150 mg PO DAILY [facility] Last Admin: 03/22/18 15:06 Dose: Not Given Citalopram Hydrobromide (Celexa) 20 mg PO DAILY SARAHI Sodium Chloride (Ns Inj) 1,000 mls @ 125 mls/hr IV.CONT .Q8H SARAHI Last Admin: 03/22/18 11:47 Dose: 125 mls/hr Levofloxacin/Dextrose (Levaquin 500 Mg Premix Inj) 500 mg in 100 mls @ 100 mls/ hr IV.SIG Q24H SARAHI Metronidazole/Sodium Chloride (Flagyl 500 Mg Inj) 100 mls @ 100 mls/hr IV.SIG Q6H SARAHI Levofloxacin/Dextrose (Levaquin 750 Mg Premix Inj) 150 mls @ 100 mls/hr IV.SIG ONCE ONE Stop: 03/22/18 15:29 Last Admin: 03/22/18 15:07 Dose: 100 mls/hr Morphine Sulfate (Morphine Inj) 2 mg IV.PUSH Q4H PRN PRN Reason: PAIN SCALE 1 TO 5 Last Admin: 03/22/18 15:07 Dose: 2 mg Morphine Sulfate (Morphine Inj) 4 mg IV.PUSH Q6H PRN PRN Reason: PAIN SCALE 6 TO 10 Ondansetron HCl (Zofran Inj) 4 mg IV.PUSH Q6H PRN PRN Reason: NAUSEA Pantoprazole Sodium (Protonix Inj) 40 mg IV.PUSH Q24H SARAHI Sodium Chloride (Ns Flush) 2 ml IV.FLUSH BID SARAHI Sodium Chloride (Ns Flush) 2 ml IV.FLUSH PRN PRN PRN Reason: FLUSH AFTER USING IV ACCESS Allergies Allergy/AdvReac Type Severity Reaction Status Date / Time No Known Allergies Allergy Verified 03/22/18 10:42 Home Medications Medication Instructions Recorded Confirmed Type bupropion HCl [Wellbutrin XL] 150 mg PO QAM 03/22/18 03/22/18 History citalopram 20 mg PO DAILY 03/22/18 03/22/18 History diltiazem HCl [Cardizem CD] 120 mg PO DAILY 03/22/18 03/22/18 History losartan 100 mg PO DAILY 03/22/18 03/22/18 History Exam Vital signs: Vital Signs 03/22/18 09:54 03/22/18 11:07 03/22/18 13:04 Temperature 98.1 F Pulse Rate 96 H 65 65 Respiratory Rate 18 Blood Pressure 116/81 119/70 114/64 Pulse Oximetry 97 97 98 03/22/18 14:17 Temperature 97.7 F Pulse Rate 63 Respiratory Rate 20 Blood Pressure 132/67 Pulse Oximetry Intake & Output 03/21/18 03/22/18 03/22/18 18:59 06:59 18:59 Intake Total 100 / 100 Balance 100 / 100 Weight 76.1 kg Intake: IV 100 / 100 Flagyl 500 MG Inj 100 ML @ 100 100 / 100 mls/hr IV.SIG ONCE ONE Rx#: [id number] Other: Weight On Admission 76.1 kg Narrative: GENERAL: Well-developed, well-nourished patient in apparent distress, complains of diffuse abdominal discomfort SKIN: Warm and dry. No rash. HEAD: Normocephalic. Atraumatic. EYES: Pupils equal and round. No scleral icterus. No injection or drainage. ENT: No nasal bleeding or discharge. Mucous membranes pink and moist. NECK: Supple. Trachea midline. CARDIOVASCULAR: Regular rate and rhythm. S1, S2 noted. No murmur appreciated. RESPIRATORY: No accessory muscle use. Clear to auscultation. Breath sounds equal bilaterally. GASTROINTESTINAL: Abdomen soft, tender to palpation diffusely, especially in bilateral right lower quadrant., nondistended. Hypoactive bowel sounds x4. MUSCULOSKELETAL: No obvious deformities. Extremities without clubbing, cyanosis , or edema. NEUROLOGICAL: Awake and alert. No obvious cranial nerve deficits. Motor grossly within normal limits. 5/5 muscle strength in bilateral upper and lower extremities. Normal speech. PSYCHIATRIC: Appropriate mood and affect; insight and judgment normal. Results - Labs CBC & Chem 7: 03/22/18 11:34 03/22/18 11:34 Labs: Laboratory Results - last 24 hr 03/22/18 03/22/18 03/22/18 11:34 11:34 11:34 CBC w Diff Auto diff final WBC 9.3 RBC 4.18 Hgb 13.7 Hct 39.8 MCV 95.1 MCH 32.7 MCHC 34.3 RDW 13.7 Plt Count 189 MPV 9.2 Neut % (Auto) 85.3 H Lymph % (Auto) 11.0 [place] % (Auto) 2.7 Eos % (Auto) 0.6 Baso % (Auto) 0.4 Neut # (Auto) 7.9 H Lymph # (Auto) 1.0 [place] # (Auto) 0.3 Eos # (Auto) 0.1 Baso # (Auto) 0.0 WBC Differential . Differential Comment . PT 10.3 INR 1.0 APTT 26.9 Sodium 139 Potassium 4.2 Chloride 106 Carbon Dioxide 25.6 Anion Gap 7 BUN 17 Creatinine 0.73 Estimated GFR 83 L Random Glucose 104 Calcium 8.9 Total Bilirubin 0.6 AST 14 L ALT 21 Alkaline Phosphatase 74 Total Protein 7.4 Albumin 3.8 Lipase 71 L Ur Collection Type Urine Color Urine Clarity Urine pH Ur Specific [place] Urine Protein Urine Glucose (UA) Urine Ketones Urine Occult Blood Urine Nitrate Urine Bilirubin Urine Urobilinogen Ur Leukocyte Esterase Urine WBC Ur Squamous Epith Cells Urine Bacteria Micro UA Comment Ur Microscopic Review Urine Culture Comments Blood Type Blood Type Recheck Antibody Screen 03/22/18 03/22/18 11:34 11:47 CBC w Diff WBC RBC Hgb Hct MCV MCH MCHC RDW Plt Count MPV Neut % (Auto) Lymph % (Auto) [place] % (Auto) Eos % (Auto) Baso % (Auto) Neut # (Auto) Lymph # (Auto) [place] # (Auto) Eos # (Auto) Baso # (Auto) WBC Differential Differential Comment PT INR APTT Sodium Potassium Chloride Carbon Dioxide Anion Gap BUN Creatinine Estimated GFR Random Glucose Calcium Total Bilirubin AST ALT Alkaline Phosphatase Total Protein Albumin Lipase Ur Collection Type Clean catch Urine Color Yellow Urine Clarity Clear Urine pH 6.0 Ur Specific [place] 1.020 Urine Protein Negative Urine Glucose (UA) Negative Urine Ketones Negative Urine Occult Blood Moderate H Urine Nitrate Positive H Urine Bilirubin Negative Urine Urobilinogen 0.2 Ur Leukocyte Esterase Negative Urine WBC 6-8 H Ur Squamous Epith Cells 6-10 H Urine Bacteria Many H Micro UA Comment Culture indicated Ur Microscopic Review Microscopic reviewed Urine Culture Comments Culture indicated Blood Type A Positive Blood Type Recheck Required Antibody Screen Negative - Imaging Impressions Abdomen/Pelvis CT 03/22/18 11:07 CONCLUSION: 1. The only questionable area is some questionable thickened transverse colon could just be a decompressed segment. Otherwise normal exam. Caprini VTE Risk Assessment Caprini VTE Risk Assessment: No/Low Risk (score <= 1) Caprini Risk Assessment Model: Point Value = 1 Point Value = 2 Point Value = 3 Point Value = 5 Age 41-60 Minor surgery BMI > 25 kg/m2 Swollen legs Varicose veins or History of unexplained or recurrent spontaneous Oral contraceptives or hormone replacement Sepsis (< 1 month) Serious lung disease, including pneumonia (< 1 month) Abnormal pulmonary function Acute myocardial infarction Congestive heart failure (< 1 month) History of inflammatory bowel disease Medical patient at bed rest Age 61-74 Arthroscopic surgery Major open surgery (> 45 min) Laparoscopic surgery (> 45 min) Malignancy Confined to bed (> 72 hours) Immobilizing plaster cast Central venous access Age >= 75 History of VTE Family history of VTE Factor V Leiden Prothrombin [id number] Lupus anticoagulant Anticardiolipin antibodies Elevated serum homocysteine Heparin-induced thrombocytopenia Other congenital or acquired thrombophilia Stroke (< 1 month) Elective arthroplasty Hip, pelvis, or leg fracture Acute spinal cord injury (< 1 month) Prophylaxis Regimen: Total Risk Factor Score Risk Level Prophylaxis Regimen 0-1 Low Early ambulation 2 Moderate Order ONE of the following: *Sequential Compression Device (SCD) *Heparin 5000 units SQ BID 3-4 Higher Order ONE of the following medications: *Heparin 5000 units SQ TID *Enoxaparin/Lovenox 40 mg SQ daily (WT < 150 kg, CrCl > 30 mL/min) *Enoxaparin/Lovenox 30 mg SQ daily (WT < 150 kg, CrCl > 10-29 mL/min) *Enoxaparin/Lovenox 30 mg SQ BID (WT < 150 kg, CrCl > 30 mL/min) AND/OR *Sequential Compression Device (SCD) 5 or more Highest Order ONE of the following medications: *Heparin 5000 units SQ TID (Preferred with Epidurals) *Enoxaparin/Lovenox 40 mg SQ daily (WT < 150 kg, CrCl > 30 mL/min) *Enoxaparin/Lovenox 30 mg SQ daily (WT < 150 kg, CrCl > 10-29 mL/min) *Enoxaparin/Lovenox 30 mg SQ BID (WT < 150 kg, CrCl > 30 mL/min) AND *Sequential Compression Device (SCD) Assessment and Plan - Assessment (1) Acute GI bleeding Code(s): K92.2 - Gastrointestinal hemorrhage, unspecified Status: Acute (2) Colitis Code(s): K52.9 - Noninfective gastroenteritis and colitis, unspecified Status : Acute (3) UTI (urinary tract infection) Code(s): N39.0 - Urinary tract infection, site not specified Status: Acute - Plan This is a 53-year-old female patient with: GI bleed Diffuse abdominal pain with complaints of nausea and diarrhea Possible colitis -Patient presents with diffuse abdominal pain, nausea and rectal bleeding 1 day. -Abdominal/pelvis CT reviewed showing compression about the transverse colon. Otherwise unremarkable. -CBC and BMP essentially unremarkable. No leukocytosis hemoglobin stable. Monitor for active bleeding. -Patient started on Levaquin and Flagyl IV. Will continue for now. -Gastroenterology consulted, input and recommendations pending. -Pain control with IV Dilaudid as needed per pain scale. Morphine IV was previously given although this has been ineffective for controlling pain. Upon assessment patient is in apparent pain at this time. Assess response. -Antiemetics as needed for nausea. -Ensure hydration, continue IV fluids. Will keep n.p.o. for now, awaiting GI input. -Supportive care. Abnormal UA, rule out UTI -Patient is on Levaquin. Will continue. Awaiting urine culture. Continue IV fluids. No leukocytosis at this time. Monitor for fever. History of hypertension, chronic: Continue to monitor blood pressure trends. Continue home medications as ordered. DVT prophylaxis: SCDs. Hold chemical prophylaxis at this time, may have active bleeding. (3) UTI (urinary tract infection) Qualifiers: Urinary tract infection type: acute cystitis Hematuria presence: without hematuria Qualified Code(s): N30.00 - Acute cystitis without hematuria
[2018-03-22] MEDS ORDERED: HYDROmorphone PF Inj 0.5 MG/0.5 ML Syringe IV.PUSH PRN ×2 (16:20→16:23)
[2018-03-22] MEDS ORDERED: Magnesium Citrate Liq 300 ML Bottle PO ONE (17:25)
[2018-03-22] MEDS ORDERED: HYDROmorphone PF Inj 2 MG/ML Vial IV.PUSH PRN (17:30)
[2018-03-22] MEDS: HYDROmorphone PF Inj 2 MG/ML Vial IV.PUSH PRN (17:45)
[2018-03-22] MEDS: Pantoprazole Inj 40 MG Vial IV.PUSH SCH (17:45)
[2018-03-22 18:13] LABS: Hematocrit 37.9 % (35.0-46.0); Hemoglobin 13.1 gm/dL (11.6-15.3)
--- NOTE | 2018-03-22 19:44 | MB ---
cc: Priya Paulino MD, Jose R MD Zulfiqar, Hassan MD DATE: 03/22/2018 This is a patient of Dr. Nava. REASON FOR CONSULTATION: Abdominal pain and rectal bleeding. HISTORY OF PRESENT ILLNESS: Ms. Arredondo is a 53-year-old lady, basically presents with 1-day history of severe abdominal pain, which is centered around the epigastric area with some bloody stools. She does not have any nausea, vomiting, or hematemesis. She states she had similar episode about 2 years ago when she was admitted to [facility]. At that time, she believes she was found to have an ulcer requiring cautery. She says she had 2 endoscopies at that time. She says in the interim 2 years, she has not had any problem since she started having this present issue. Currently, she is not having any bleeding. She is still having quite a bit of central abdominal pain. PAST MEDICAL HISTORY: Depression, history of GI bleeding, peptic ulcer disease, hypertension. SURGICAL HISTORY: Hysterectomy, endoscopies in the past. No colonoscopy reported. SOCIAL HISTORY: No tobacco, no alcohol reported. CURRENT MEDICATIONS: Wellbutrin, Celexa, Dilaudid, Levaquin, Flagyl, Zofran, and Protonix. LABORATORY DATA: White cell count of 9.3, hemoglobin 13.7. INR 1.0. Creatinine 0.73. LFTs are normal. Lipase is 71. CT scan of the abdomen and pelvis with IV contrast revealed some nonspecific colitis. Otherwise unremarkable. IMPRESSION: Abdominal pain, gastrointestinal bleeding. RECOMMENDATIONS: Possible peptic ulcer disease. EGD, colonoscopy planned for tomorrow morning. Bowel prep has been ordered for today. Continue to monitor labs. IV Protonix 40 mg b.i.d. Type and screen for 2 units of blood. We will follow with you. Thank you for this referral. Priya Paulino MD HZ/jeny , 05:30 PM , 05:36 PM
[2018-03-23 00:14] LABS: Hematocrit 35.2 % (35.0-46.0)
[2018-03-23] MEDS: HYDROmorphone PF Inj 2 MG/ML Vial IV.PUSH PRN ×6 (00:49→21:27)
[2018-03-23] MEDS: Sod Chloride 0.9% Inj 1,000 ML IV.CONT SCH ×2 (04:55→12:05)
[2018-03-23] MEDS: Pantoprazole Inj 40 MG Vial IV.PUSH SCH ×2 (05:07→17:26)
[2018-03-23 06:53] LABS: Baso % (Auto) 0.2 % (0.0-2.0); Eos # (Auto) 0.1 th/mm3 (0.0-0.4); Eos % (Auto) 0.9 % (0.0-4.0); Lymph % (Auto) 11.3 % (9.0-44.0); Mean Corpuscular HGB Conc 34.3 % (32.0-36.0); Mean Corpuscular Volume 96.2 fL (80.0-100.0); Mono # (Auto) 0.4 th/mm3 (0.0-0.9); Neut # (Auto) 7.3 th/mm3 (1.8-7.7); Neut % (Auto) 82.6 % (16.0-70.0); Platelet Count 155 th/mm3 (150-450); Red Blood Count 3.64 mil/mm3 (4.00-5.30); Red Cell Distribution Width 13.8 % (11.6-17.2); White Blood Count 8.8 th/mm3 (4.0-11.0)
[2018-03-23 07:22] LABS: Chloride 108 meq/L (98-107); Potassium 4.5 meq/L (3.5-5.1); Sodium 140 meq/L (136-145)
[2018-03-23 07:39] LABS: Anion Gap 7 meq/L (5-15); Blood Urea Nitrogen 11 mg/dL (7-18); Calcium 8.2 mg/dL (8.5-10.1); Carbon Dioxide 25.5 meq/L (21.0-32.0); Glomerular Filtration Rate Greater Than 89 mL/min (>89); Glucose,Random 104 mg/dL (74-106)
[2018-03-23] MEDS: buPROPion 150 MG 12 HR Tablet PO SCH (08:39)
[2018-03-23] MEDS: Citalopram 20 MG Tablet PO SCH (08:39)
[2018-03-23] MEDS: dilTIAZem CD 120 MG Capsule PO SCH (09:05)
--- NOTE | 2018-03-23 10:50 | P.PNIM ---
Subjective Interval history: Follow-up abdominal pain and GI bleed. Patient seen and examined lying in bed comfortably states that her pain is much more controlled today. Awaiting EGD and colonoscopy by gastroenterology today at 3 PM. No acute events overnight. Vital signs stable. Denies any fevers, chills, cough, shortness breath, diarrhea or dysuria. Denies any further GI bleeding. Physical Exam Vital signs: Vital Signs 03/22/18 11:07 03/22/18 13:04 03/22/18 14:17 Temperature 97.7 F Pulse Rate 65 65 63 Respiratory Rate 16 18 20 Blood Pressure 119/70 114/64 132/67 Pulse Oximetry 97 98 03/22/18 16:00 03/22/18 20:00 03/23/18 00:00 Temperature 98.3 F 97.6 F 97.5 F L Pulse Rate 65 89 81 Respiratory Rate 20 20 20 Blood Pressure 123/63 151/93 H 148/87 H Pulse Oximetry 95 97 96 03/23/18 04:00 03/23/18 08:00 Temperature 97.6 F 97.3 F L Pulse Rate 78 79 Respiratory Rate 20 19 Blood Pressure 166/100 H 173/79 H Pulse Oximetry 96 96 Intake & Output 03/22/18 03/23/18 03/23/18 18:59 06:59 18:59 Intake Total 200 / 200 2690 / 2690 0 / 0 Output Total 4 / 4 200 / 200 Balance 200 / 200 2686 / 2686 -200 / -200 Weight 76.1 kg 78.3 kg Intake: IV 200 / 200 2450 / 2450 NS Inj 1,000 ML @ 125 mls/hr IV 1999 .CONT .Q8H SARAHI Rx#:[id number] Levaquin 750 mg Premix Inj 150 250 / 250 ML @ 100 mls/hr IV.SIG ONCE ONE Rx#:[id number] Flagyl 500 MG Inj 100 ML @ 100 200 / 200 200 / 200 mls/hr IV.SIG Q6H SARAHI Rx#: [id number] Oral 0 / 0 240 / 240 0 / 0 Output: Urine 200 / 200 Stool 4 / 4 Other: # Voids 1 5 # Bowel Movements 4 Weight On Admission 76.1 kg Narrative: GENERAL: Well-developed, well-nourished patient in [facility]. SKIN: Warm and dry. No rash. HEAD: Normocephalic. Atraumatic. EYES: Pupils equal and round. No scleral icterus. No injection or drainage. ENT: No nasal bleeding or discharge. Mucous membranes pink and moist. NECK: Supple. Trachea midline. CARDIOVASCULAR: Regular rate and rhythm. S1, S2 noted. No murmur appreciated. RESPIRATORY: No accessory muscle use. Clear to auscultation. Breath sounds equal bilaterally. GASTROINTESTINAL: Abdomen soft, mild tenderness to midepigastric area, nondistended. No active bowel sounds x4. MUSCULOSKELETAL: No obvious deformities. Extremities without clubbing, cyanosis , or edema. NEUROLOGICAL: Awake and alert. No obvious cranial nerve deficits. Motor grossly within normal limits. 5/5 muscle strength in bilateral upper and lower extremities. Normal speech. PSYCHIATRIC: Appropriate mood and affect; insight and judgment normal. Results - Labs CBC & Chem 7: 03/23/18 05:45 03/23/18 05:45 Laboratory Results - last 24 hr 03/22/18 03/22/18 03/22/18 11:34 11:34 11:34 CBC w Diff Auto diff final WBC 9.3 RBC 4.18 Hgb 13.7 Hct 39.8 MCV 95.1 MCH 32.7 MCHC 34.3 RDW 13.7 Plt Count 189 MPV 9.2 Neut % (Auto) 85.3 H Lymph % (Auto) 11.0 [place] % (Auto) 2.7 Eos % (Auto) 0.6 Baso % (Auto) 0.4 Neut # (Auto) 7.9 H Lymph # (Auto) 1.0 [place] # (Auto) 0.3 Eos # (Auto) 0.1 Baso # (Auto) 0.0 WBC Differential . Differential Comment . PT 10.3 INR 1.0 APTT 26.9 Sodium 139 Potassium 4.2 Chloride 106 Carbon Dioxide 25.6 Anion Gap 7 BUN 17 Creatinine 0.73 Estimated GFR 83 L Random Glucose 104 Calcium 8.9 Total Bilirubin 0.6 AST 14 L ALT 21 Alkaline Phosphatase 74 Total Protein 7.4 Albumin 3.8 Lipase 71 L Ur Collection Type Urine Color Urine Clarity Urine pH Ur Specific [place] Urine Protein Urine Glucose (UA) Urine Ketones Urine Occult Blood Urine Nitrate Urine Bilirubin Urine Urobilinogen Ur Leukocyte Esterase Urine WBC Ur Squamous Epith Cells Urine Bacteria Micro UA Comment Ur Microscopic Review Urine Culture Comments Stl C.difficile Tox PCR St C. diff Tox Epid 027 Blood Type Blood Type Recheck Antibody Screen MTS Gel Crossmatch Bld Prod Order Comment 03/22/18 03/22/18 03/22/18 11:34 11:47 17:30 CBC w Diff WBC RBC Hgb Hct MCV MCH MCHC RDW Plt Count MPV Neut % (Auto) Lymph % (Auto) [place] % (Auto) Eos % (Auto) Baso % (Auto) Neut # (Auto) Lymph # (Auto) [place] # (Auto) Eos # (Auto) Baso # (Auto) WBC Differential Differential Comment PT INR APTT Sodium Potassium Chloride Carbon Dioxide Anion Gap BUN Creatinine Estimated GFR Random Glucose Calcium Total Bilirubin AST ALT Alkaline Phosphatase Total Protein Albumin Lipase Ur Collection Type Clean catch Urine Color Yellow Urine Clarity Clear Urine pH 6.0 Ur Specific [place] 1.020 Urine Protein Negative Urine Glucose (UA) Negative Urine Ketones Negative Urine Occult Blood Moderate H Urine Nitrate Positive H Urine Bilirubin Negative Urine Urobilinogen 0.2 Ur Leukocyte Esterase Negative Urine WBC 6-8 H Ur Squamous Epith Cells 6-10 H Urine Bacteria Many H Micro UA Comment Culture indicated Ur Microscopic Review Microscopic reviewed Urine Culture Comments Culture indicated Stl C.difficile Tox PCR St C. diff Tox Epid 027 Blood Type A Positive Blood Type Recheck Required Antibody Screen Negative MTS Gel Crossmatch See Detail Bld Prod Order Comment 03/22/18 03/22/18 03/23/18 18:00 21:55 00:05 CBC w Diff WBC RBC Hgb 13.1 12.0 Hct 37.9 35.2 MCV MCH MCHC RDW Plt Count MPV Neut % (Auto) Lymph % (Auto) [place] % (Auto) Eos % (Auto) Baso % (Auto) Neut # (Auto) Lymph # (Auto) [place] # (Auto) Eos # (Auto) Baso # (Auto) WBC Differential Differential Comment PT INR APTT Sodium Potassium Chloride Carbon Dioxide Anion Gap BUN Creatinine Estimated GFR Random Glucose Calcium Total Bilirubin AST ALT Alkaline Phosphatase Total Protein Albumin Lipase Ur Collection Type Urine Color Urine Clarity Urine pH Ur Specific [place] Urine Protein Urine Glucose (UA) Urine Ketones Urine Occult Blood Urine Nitrate Urine Bilirubin Urine Urobilinogen Ur Leukocyte Esterase Urine WBC Ur Squamous Epith Cells Urine Bacteria Micro UA Comment Ur Microscopic Review Urine Culture Comments Stl C.difficile Tox PCR Negative St C. diff Tox Epid 027 Negative Blood Type Blood Type Recheck Antibody Screen MTS Gel Crossmatch Bld Prod Order Comment 03/23/18 03/23/18 05:45 05:45 CBC w Diff Auto diff final WBC 8.8 RBC 3.64 L Hgb 12.0 Hct 35.0 MCV 96.2 MCH 33.0 MCHC 34.3 RDW 13.8 Plt Count 155 MPV 9.0 Neut % (Auto) 82.6 H Lymph % (Auto) 11.3 [place] % (Auto) 5.0 Eos % (Auto) 0.9 Baso % (Auto) 0.2 Neut # (Auto) 7.3 Lymph # (Auto) 1.0 [place] # (Auto) 0.4 Eos # (Auto) 0.1 Baso # (Auto) 0.0 WBC Differential . Differential Comment . PT INR APTT Sodium 140 Potassium 4.5 Chloride 108 H Carbon Dioxide 25.5 Anion Gap 7 BUN 11 Creatinine 0.58 Estimated GFR Greater than 89 Random Glucose 104 Calcium 8.2 L Total Bilirubin AST ALT Alkaline Phosphatase Total Protein Albumin Lipase Ur Collection Type Urine Color Urine Clarity Urine pH Ur Specific [place] Urine Protein Urine Glucose (UA) Urine Ketones Urine Occult Blood Urine Nitrate Urine Bilirubin Urine Urobilinogen Ur Leukocyte Esterase Urine WBC Ur Squamous Epith Cells Urine Bacteria Micro UA Comment Ur Microscopic Review Urine Culture Comments Stl C.difficile Tox PCR St C. diff Tox Epid 027 Blood Type Blood Type Recheck Antibody Screen MTS Gel Crossmatch Bld Prod Order Comment - Imaging Impressions Abdomen/Pelvis CT 03/22/18 11:07 CONCLUSION: 1. The only questionable area is some questionable thickened transverse colon could just be a decompressed segment. Otherwise normal exam. Assessment and Plan - Assessment (1) Acute GI bleeding Code(s): K92.2 - Gastrointestinal hemorrhage, unspecified Status: Acute (2) Colitis Code(s): K52.9 - Noninfective gastroenteritis and colitis, unspecified Status : Acute (3) UTI (urinary tract infection) Code(s): N39.0 - Urinary tract infection, site not specified Status: Acute - Plan This is a 53-year-old female patient with: GI bleed Diffuse abdominal pain with complaints of nausea and diarrhea. Improved. Possible colitis, epigastric ulcer -Patient presents with diffuse abdominal pain, nausea and rectal bleeding 1 day. No complaints of further GI bleeding. -Abdominal/pelvis CT reviewed showing compression about the transverse colon. Otherwise unremarkable. -CBC and BMP essentially unremarkable. No leukocytosis hemoglobin stable. Monitor for active bleeding. -Patient started on Levaquin and Flagyl IV. Will continue for now. -Gastroenterology consulted, appreciate input and recommendations. Plan for EGD and colonoscopy this afternoon. Keep n.p.o. for now. -Pain control with IV Dilaudid as needed per pain scale. -Antiemetics as needed for nausea. -Ensure hydration, continue IV fluids. Will keep n.p.o. until after GI procedure. -Supportive care. Abnormal UA, rule out UTI -Patient is on Levaquin. Will continue. Awaiting urine culture. Continue IV fluids. No leukocytosis at this time. Monitor for fever. History of hypertension, chronic: Continue to monitor blood pressure trends. Continue home medications as ordered. DVT prophylaxis: SCDs. Hold chemical prophylaxis at this time, may have active bleeding. Discharge Planning: Await clinical improvement and further GI recommendations. (3) UTI (urinary tract infection) Qualifiers: Urinary tract infection type: acute cystitis Hematuria presence: without hematuria Qualified Code(s): N30.00 - Acute cystitis without hematuria
[2018-03-23 12:25] LABS: Hematocrit 38.1 % (35.0-46.0)
[2018-03-23] MEDS ORDERED: Pantoprazole Inj 40 MG Vial IV.PUSH SCH (13:00)
[2018-03-23] MEDS: Levofloxacin 500 mg Premix Inj 500 MG/100 ML PIGGYBACK IV.SIG SCH (13:18)
[2018-03-23] MEDS ORDERED: Chlorhexidine Gluconate 2% 1 Pack (2 Cloths) TOPICAL ONE (14:30)
[2018-03-23] MEDS ORDERED: Metoprolol Tartrate 25 MG Tablet PO ONE (14:30)
[2018-03-23] MEDS ORDERED: Sodium Chlor 0.9% Inj 500 ML IV.SIG SCH (15:00)
[2018-03-23] MEDS ORDERED: Lidocaine PF 1% Inj 5 ML Syringe INFILTRATN ONE (15:19)
--- NOTE | 2018-03-23 19:14 | ECG ---
Date Performed: 03/23/2018 Time Performed: 08:02:09 PTAGE: 53 years EKG: Sinus rhythm WITH SINUS ARRHYTHMIA NORMAL ECG PREVIOUS TRACING : 08/06/2016 07.48 Since the previous tracing, no significant change noted DOCTOR: Hakeem Khalil Interpretating Date/Time 03/23/2018 19:12:37
--- NOTE | 2018-03-23 19:23 | CT ---
EXAM DATE: 03/23/2018 6:53 PM EDT AGE/SEX: 53 years / Female INDICATIONS: Upper abdominal pain. Evaluate for ischemic colitis. CLINICAL DATA: This is the patient's initial encounter. Patient reports that signs and symptoms have been present for 2 days and indicates a pain score of 6/10. MEDICAL/SURGICAL HISTORY: Hypertension. Hysterectomy. Appendectomy. RADIATION DOSE: 18.03 CTDI (mGy) COMPARISON: No prior exams available for comparison. TECHNIQUE: Volumetric scanning was performed using a multi-row detector CT scanner during bolus infu jan of 90 ml Omnipaque 350 (iohexol) nonionic water-soluble contrast as a single exam dose. . The data was post processed with a variety of visualization algorithms including full volume maximum inte nsity projection, multi-planar sliding thin slab reformation, curved planar reformation, and surface rendering techniques. Using automated exposure control and adjustment of the mA and/or kV according to patient size, radiation dose was kept as low as reasonably achievable to obtain optimal diagnostic quality images. DICOM format image data is available electronically for review and comparison. FINDINGS: There is an approximately 12 cm segment of circumferential mural thickening in the transverse colon w ith some questionable mild thickening in the remainder of the colon. Findings are most characteristic of a colitis. The celiac, superior mesenteric, inferior mesenteric and renal arteries are patent. No aortic aneurys m or dissection. Mild to moderate atherosclerotic change. No acute findings in the spleen, adrenals, kidneys and pancreas. Mild fatty liver. No calcified galls tones or biliary ductal dilatation. Trace free fluid in the pelvis. No free air. CONCLUSION: 1. Circumferential mural thickening of a 12 cm segment of transverse colon characteristic of a colit is. Etiology unclear. There is some questionable mild mural thickening in the remainder of the colon as well. 2. No significant arterial vascular stenosis identified within the abdomen or pelvis. Specifically t he celiac, superior mesenteric and inferior mesenteric arteries are patent. 3. Trace free fluid in the pelvis. Mild fatty liver. Dependent atelectasis in the lungs. Electronically signed by: Ochoa Ramírez MD 03/23/2018 7:22 PM EDT
[2018-03-23] MEDS ORDERED: Zolpidem Tartrate 5 MG Tablet PO PRN (21:47)
[2018-03-24] MEDS: HYDROmorphone PF Inj 2 MG/ML Vial IV.PUSH PRN ×2 (05:10→09:30)
[2018-03-24] MEDS: Pantoprazole Inj 40 MG Vial IV.PUSH SCH (05:10)
[2018-03-24] MEDS: Sod Chloride 0.9% Inj 1,000 ML IV.CONT SCH (05:10)
[2018-03-24] MEDS: dilTIAZem CD 120 MG Capsule PO SCH (08:29)
[2018-03-24] MEDS: buPROPion 150 MG 12 HR Tablet PO SCH (08:29)
[2018-03-24] MEDS: Citalopram 20 MG Tablet PO SCH (08:29)
--- NOTE | 2018-03-24 10:09 | P.PNIM ---
Subjective Interval history: Follow up colitis. Patient seen and examined, lying in bed comfortably in no apparent distress. Patient states that pain is well controlled. She feels much improved today. She has been eating well without any nausea vomiting diarrhea or abdominal pain. Tolerating liquids as well. Vital signs stable. Afebrile. Physical Exam Vital signs: Vital Signs 03/23/18 12:00 03/23/18 15:41 03/23/18 15:55 Temperature 97.4 F L 97.9 F Pulse Rate 72 90 80 Respiratory Rate 21 16 16 Blood Pressure 161/86 H 133/81 151/98 H Pulse Oximetry 95 96 97 03/23/18 16:00 03/23/18 18:29 03/23/18 20:00 Temperature 98.3 F 97.9 F Pulse Rate 104 H 86 79 Respiratory Rate 22 20 Blood Pressure 180/91 H 167/98 H 189/87 H Pulse Oximetry 95 95 03/24/18 00:00 03/24/18 04:00 03/24/18 08:00 Temperature 97.8 F 97.8 F 97.8 F Pulse Rate 67 56 L 73 Respiratory Rate 20 20 20 Blood Pressure 166/76 H 181/77 H 180/76 H Pulse Oximetry 93 L 95 96 Intake & Output 03/23/18 03/24/18 03/24/18 18:59 06:59 18:59 Intake Total 2530 / 2530 1440 / 1440 240 / 240 Output Total 500 / 500 300 / 300 Balance 2029 1440 / 1440 -60 / -60 Weight 78.6 kg Intake: IV 1290 / 1290 1200 / 1200 NS Inj 1,000 ML @ 75 mls/hr IV. 1000 / 1000 1000 / 1000 CONT .[id number] SARAHI Rx#: [id number] Levaquin 500 mg Premix Inj 500 90 / 90 mg In 100 ml @ 100 mls/hr IV. SIG Q24H SARAHI Rx#:[id number] Flagyl 500 MG Inj 100 ML @ 100 200 / 200 200 / 200 mls/hr IV.SIG Q6H SARAHI Rx#: [id number] Oral 240 / 240 240 / 240 240 / 240 Anesthesia Amount 1000 / 1000 Output: Urine 500 / 500 300 / 300 Other: # Voids 0 2 Narrative: GENERAL: Well-developed, well-nourished patient in [facility]. SKIN: Warm and dry. No rash. HEAD: Normocephalic. Atraumatic. EYES: Pupils equal and round. No scleral icterus. No injection or drainage. ENT: No nasal bleeding or discharge. Mucous membranes pink and moist. NECK: Supple. Trachea midline. CARDIOVASCULAR: Regular rate and rhythm. S1, S2 noted. No murmur appreciated. RESPIRATORY: No accessory muscle use. Clear to auscultation. Breath sounds equal bilaterally. GASTROINTESTINAL: Abdomen soft, nontender, nondistended. No active bowel sounds x4. MUSCULOSKELETAL: No obvious deformities. Extremities without clubbing, cyanosis , or edema. NEUROLOGICAL: Awake and alert. No obvious cranial nerve deficits. Motor grossly within normal limits. 5/5 muscle strength in bilateral upper and lower extremities. Normal speech. PSYCHIATRIC: Appropriate mood and affect; insight and judgment normal. Results - Labs CBC & Chem 7: 03/23/18 11:59 03/23/18 05:45 Laboratory Results - last 24 hr 03/22/18 03/23/18 11:47 11:59 Hgb 13.0 Hct 38.1 Ur Collection Type Clean catch Urine Color Yellow Urine Clarity Clear Urine pH 6.0 Ur Specific [place] 1.020 Urine Protein Negative Urine Glucose (UA) Negative Urine Ketones Negative Urine Occult Blood Moderate H Urine Nitrate Positive H Urine Bilirubin Negative Urine Urobilinogen 0.2 Ur Leukocyte Esterase Negative Urine WBC 6-8 H Ur Squamous Epith Cells 6-10 H Urine Bacteria Many H Micro UA Comment Culture indicated Ur Microscopic Review Microscopic reviewed Urine Culture Comments Culture indicated Microbiology 03/22/18 11:47 Clean Catch Urine Urine Culture - Preliminary gram negative rods - Imaging Impressions Abdomen/Pelvis CTA 03/23/18 00:00 CONCLUSION: 1. Circumferential mural thickening of a 12 cm segment of transverse colon characteristic of a colitis. Etiology unclear. There is some questionable mild mural thickening in the remainder of the colon as well. 2. No significant arterial vascular stenosis identified within the abdomen or pelvis. Specifically the celiac, superior mesenteric and inferior mesenteric arteries are patent. 3. Trace free fluid in the pelvis. Mild fatty liver. Dependent atelectasis in the lungs. Assessment and Plan - Assessment (1) Acute GI bleeding Code(s): K92.2 - Gastrointestinal hemorrhage, unspecified Status: Acute (2) Colitis Code(s): K52.9 - Noninfective gastroenteritis and colitis, unspecified Status : Acute (3) UTI (urinary tract infection) Code(s): N39.0 - Urinary tract infection, site not specified Status: Acute - Plan This is a 53-year-old female patient with: Colitis -Patient presents with diffuse abdominal pain, nausea and rectal bleeding 1 day. No complaints of further GI bleeding. Improved -Abdominal/pelvis CT reviewed showing compression about the transverse colon. Otherwise unremarkable. -CBC and BMP essentially unremarkable. No leukocytosis hemoglobin stable. Monitor for active bleeding. -Patient started on Levaquin and Flagyl IV. Will change to PO antibiotics. -Gastroenterology consulted, appreciate input and recommendations. Underwent EGD and colonoscopy. Concern for ischemic colitis. CTA ab/pelvis reviewed showing thickening of a 12 cm segment of transverse colon. -Pain control with IV Dilaudid as needed per pain scale. Will provide PO pain medications, encouraged to avoid IV if tolerated. -Antiemetics as needed for nausea. -DC IVF. Tolerating PO well. -Supportive care. UTI -Patient is on Levaquin. Will continue. UC showing gram neg rods, will await BERNARD and sensitivity. No leukocytosis at this time. Monitor for fever. History of hypertension, chronic: Continue to monitor blood pressure trends. Continue home medications as ordered. DVT prophylaxis: SCDs. Hold chemical prophylaxis at this time, may have active bleeding. Discharge Planning: Await clinical improvement and further GI recommendations. (3) UTI (urinary tract infection) Qualifiers: Urinary tract infection type: acute cystitis Hematuria presence: without hematuria Qualified Code(s): N30.00 - Acute cystitis without hematuria
--- NOTE | 2018-03-24 10:19 | P.DS ---
Date of admission: 03/22/18 12:52 Primary care physician: No Primary Care Physician Brief History from admission: This is a pleasant 53-year-old female patient with a known medical history of hypertension and depression who presented to the ED with complaints of abdominal pain as well as bloody stools. Patient states that yesterday she developed a abdominal discomfort that was diffusely present in her abdomen, pain was characteristically cramping in nature, intermittent, pain would be worse with any activity. Patient states that the pain is a 10 out of 10 at its worst on pain scale. She states that she took some Tylenol at home which did not relieve the pain. She also states that she noticed some bleeding last evening in her bowels. She denies any recent NSAID use. She does not have hemorrhoids. Patient denies any recent fevers, chills, headache, shortness of breath, vomiting or dysuria. She does admit to nausea and poor appetite for 3 days now. She also does admit to intermittent bloody diarrhea. Her last bowel movement was this morning. She states that the IV morphine given in ED did help her pain although was only short-lived. Upon assessment, patient is in apparent distress, states that the morphine IV given roughly an hour ago has worn off. She does state that she had a previous EGD roughly 2 years ago at [facility], at that time she did have a GI bleed diagnosis, states that she believes they cauterize something in her stomach. She required 6 units of PRBC transfusion. Since that time she has been doing relatively well. She does not follow with the physical therapy nurse. Her PCP was last seen a month ago , denies any changes to her medicines. She does admit to history of hysterectomy and appendectomy. Denies ever having a colonoscopy in the past. Denies any tobacco abuse, alcohol or drug use. DS: Diagnosis - Discharge Diagnosis (1) Acute GI bleeding Status: Acute (2) Colitis Status: Acute (3) UTI (urinary tract infection) Status: Acute DS: Medications - Discharge Medications Prescriptions: ciprofloxacin HCl [Cipro] 500 mg PO BID 7 Days #14 tab hydrochlorothiazide 12.5 mg PO DAILY 30 Days #30 cap hydrocodone-acetaminophen 1 tab PO Q4H PRN 3 Days tab PRN Reason: PAIN 1-5 IF TAKING P.O. levofloxacin [Levaquin] 750 mg PO DAILY 7 Days #7 tab DS: Summary Hospital Course: This is a 53-year-old female patient who presented with diffuse abdominal pain, nausea and rectal bleeding 1 day. No complaints of further GI bleeding. Improved. Diagnosed as colitis. Abdominal/pelvis CT reviewed showing compression about the transverse colon. Otherwise unremarkable. CBC and BMP essentially unremarkable. No leukocytosis hemoglobin stable. Patient started on Levaquin and Flagyl IV. Changed to PO antibiotics. Gastroenterology consulted , underwent EGD and colonoscopy. Concern for ischemic colitis. CTA ab/pelvis reviewed showing thickening of a 12 cm segment of transverse colon. No blockages seen. Pain control with IV Dilaudid as needed per pain scale. Switched to PO. Antiemetics as needed for nausea. Patient with UTI, was placed on Levaquin. UC showing gram neg rods, will follow BERANRD and sensitivity. No leukocytosis at this time. Monitor for fever. History of hypertension, chronic : Continue to monitor blood pressure trends. Continue home medications as ordered. Added HCTZ to regimen and on DC. Patient is improved. GI ok to DC. Follow up in 1 week. Continue antibiotics to completion.. Follow up PCP. - Time Spent with Patient Total time spent providing and/or coordinating discharge services: Greater than 30 minutes Exam Vital signs: Vital Signs 03/23/18 12:00 03/23/18 15:41 03/23/18 15:55 Temperature 97.4 F L 97.9 F Pulse Rate 72 90 80 Respiratory Rate 21 16 16 Blood Pressure 161/86 H 133/81 151/98 H Pulse Oximetry 95 96 97 03/23/18 16:00 03/23/18 18:29 03/23/18 20:00 Temperature 98.3 F 97.9 F Pulse Rate 104 H 86 79 Respiratory Rate 22 20 Blood Pressure 180/91 H 167/98 H 189/87 H Pulse Oximetry 95 95 03/24/18 00:00 03/24/18 04:00 03/24/18 08:00 Temperature 97.8 F 97.8 F 97.8 F Pulse Rate 67 56 L 73 Respiratory Rate 20 20 20 Blood Pressure 166/76 H 181/77 H 180/76 H Pulse Oximetry 93 L 95 96 Intake & Output 03/23/18 03/24/18 03/24/18 18:59 06:59 18:59 Intake Total 2530 / 2530 1440 / 1440 240 / 240 Output Total 500 / 500 300 / 300 Balance 2029 1440 / 1440 -60 / -60 Weight 78.6 kg Intake: IV 1290 / 1290 1200 / 1200 NS Inj 1,000 ML @ 75 mls/hr IV. 1000 / 1000 1000 / 1000 CONT .[id number] SARAHI Rx#: [id number] Levaquin 500 mg Premix Inj 500 90 / 90 mg In 100 ml @ 100 mls/hr IV. SIG Q24H SARAHI Rx#:[id number] Flagyl 500 MG Inj 100 ML @ 100 200 / 200 200 / 200 mls/hr IV.SIG Q6H SARAHI Rx#: [id number] Oral 240 / 240 240 / 240 240 / 240 Anesthesia Amount 1000 / 1000 Output: Urine 500 / 500 300 / 300 Other: # Voids 0 2 Narrative: GENERAL: Well-developed, well-nourished patient in [facility]. SKIN: Warm and dry. No rash. HEAD: Normocephalic. Atraumatic. EYES: Pupils equal and round. No scleral icterus. No injection or drainage. ENT: No nasal bleeding or discharge. Mucous membranes pink and moist. NECK: Supple. Trachea midline. CARDIOVASCULAR: Regular rate and rhythm. S1, S2 noted. No murmur appreciated. RESPIRATORY: No accessory muscle use. Clear to auscultation. Breath sounds equal bilaterally. GASTROINTESTINAL: Abdomen soft, non-tender, nondistended. Normoactive bowel sounds x4. MUSCULOSKELETAL: No obvious deformities. Extremities without clubbing, cyanosis , or edema. NEUROLOGICAL: Awake and alert. No obvious cranial nerve deficits. Motor grossly within normal limits. 5/5 muscle strength in bilateral upper and lower extremities. Normal speech. PSYCHIATRIC: Appropriate mood and affect; insight and judgment normal. Results Procedures completed during hospitalization: EGD/Colonoscopy Pending studies at discharge: Pending at discharge 03/23/18 07:45 Surgical [PTH] Urgent Labs on day of discharge: Labs from last 24 hours 03/23/18 03/22/18 11:59 11:47 Hgb 13.0 Hct 38.1 Ur Collection Type Clean catch Urine Color Yellow Urine Clarity Clear Urine pH 6.0 Ur Specific [place] 1.020 Urine Protein Negative Urine Glucose (UA) Negative Urine Ketones Negative Urine Occult Blood Moderate H Urine Nitrate Positive H Urine Bilirubin Negative Urine Urobilinogen 0.2 Ur Leukocyte Esterase Negative Urine WBC 6-8 H Ur Squamous Epith Cells 6-10 H Urine Bacteria Many H Micro UA Comment Culture indicated Ur Microscopic Review Microscopic reviewed Urine Culture Comments Culture indicated - Impressions ITS Impressions Abdomen/Pelvis CT 03/22/18 11:07 CONCLUSION: 1. The only questionable area is some questionable thickened transverse colon could just be a decompressed segment. Otherwise normal exam. Abdomen/Pelvis CTA 03/23/18 00:00 CONCLUSION: 1. Circumferential mural thickening of a 12 cm segment of transverse colon characteristic of a colitis. Etiology unclear. There is some questionable mild mural thickening in the remainder of the colon as well. 2. No significant arterial vascular stenosis identified within the abdomen or pelvis. Specifically the celiac, superior mesenteric and inferior mesenteric arteries are patent. 3. Trace free fluid in the pelvis. Mild fatty liver. Dependent atelectasis in the lungs. Discharge Plan - Discharge Disposition Patient Disposition: 01 Discharge Home - Discharge Condition Condition: Stable - Discharge Order Discharge Orders: Discharge Order (Routine); Ordered 03/24/18 Ordered By: Stephie Callahan - Discharge Details Anticipated Discharge Date: 03/24/18 - Physicians Team Primary Care Provider: [facility] [place] [facility] Attending Provider: Harsha Nava Other Providers: Priya Paulino MD
[2018-03-24] MEDS: Levofloxacin 500 mg Premix Inj 500 MG/100 ML PIGGYBACK IV.SIG SCH (12:27)
[2018-03-24 13:07] VITALS: PULSE 77; RESP 21; TEMP 98.5; O2SAT 95
[2018-03-24 13:11] VITALS: BP 158/78
== END 2018-03-24 13:24 | disposition home or self-care (01) ==
LOC: PHEDA 09:52 → PHED 09:52 → PH3 13:59
PROVIDERS: ADMIT Internal Medicine; ATTEND Internal Medicine
PROC: PANENDO (2018-03-23 15:14)
PROC: COLONOS (2018-03-23 15:14)
DX: N39.0 Urinary tract infection, site not specified; K76.0 Fatty (change of) liver, not elsewhere classified; I10 Essential (primary) hypertension; K64.8 Other hemorrhoids; B96.20 Unspecified Escherichia coli [E. coli] as the cause of diseases classified elsewhere; K29.81 Duodenitis with bleeding; Z87.11 Personal history of peptic ulcer disease; D12.6 Benign neoplasm of colon, unspecified; Z90.49 Acquired absence of other specified parts of digestive tract; F32.9 Major depressive disorder, single episode, unspecified; Z87.891 Personal history of nicotine dependence; K52.9 Noninfective gastroenteritis and colitis, unspecified; Z90.710 Acquired absence of both cervix and uterus; K57.91 Diverticulosis of intestine, part unspecified, without perforation or abscess with bleeding; K20.9 Esophagitis, unspecified; J98.11 Atelectasis